=== PATIENT | female | born 1950 | race Caucasian/White ===

== ENCOUNTER 2017-03-31 13:00 | Inpatient (IN) | payer MEDICARE ==
[~2017-03-31] VITALS: Ht 165.1 cm; Wt 113.3 kg
[~2017-03-31 13:00] MED LIST: ALLO300T2 PO; DYAZ37.5 PO; KRIL1CAP9 PO; LEVO.15 PO; METF500 PO; ZOCO40TA PO
[2017-06-29] MEDS ORDERED: COQ-100C5 PO (08:34)
[2017-06-29] MEDS ORDERED: ASPI-110 PO (08:34)
[2017-06-29] MEDS ORDERED: METO25TA3 PO (08:42)
[2017-07-07] MEDS ORDERED: SODIUM CHLORID 0.9% 500 ML IV PRN (06:45)
[2017-07-07] MEDS ORDERED: METOPROLOL TARTRATE 25 MG TAB PO PRN (06:45)
[2017-07-07] MEDS ORDERED: INSULIN HUMAN REGULAR 1,000 UNITS/10 ML VIAL SQ PRN (06:45)
[2017-07-07] MEDS ORDERED: TRANEXAMIC ACID INJ 1,135 MG in SODIUM CHLORIDE 0.9% INJ 100 ML IV SCH (06:45)
[2017-07-07] MEDS ORDERED: POVIDONE IODINE 7.5% SCRUB 118 ML BOTTLE TOPICAL SCH (06:45)
[2017-07-07] MEDS ORDERED: LACTATED RINGER'S 1000 ML IV PRN (06:45)
[2017-07-07] MEDS ORDERED: ceFAZolin 2 GM PREMIX 50 ML IV SCH (06:45)
[2017-07-07] MEDS ORDERED: POVIDONE IODINE 5% (ANTISEPSIS KIT) 4 APPLICATIONS EACH NARE PRN (06:45)
[2017-07-07] MEDS ORDERED: VANCOMYCIN 1000 MG/NS 250 ML (for <70 kg) IV SCH ×2 (06:45)
[2017-07-07] MEDS ORDERED: CHLORHEXIDINE GLUCONATE 2 % 1 PACK (2 CLOTHS) TOPICAL PRN (06:45)
[2017-07-07] MEDS ORDERED: EXPAREL PERI-ARTICULAR INJECTION (TOTAL VOL. 60 ML) P-ARTICULR SCH ×2 (06:45)
[2017-07-07] MEDS ORDERED: ACETAMINOPHEN 1000 MG/100 ML 100 ML IV ONE (07:32)
[2017-07-07] MEDS ORDERED: BUPIVACAINE HCL PF 0.5% 30 ML VIAL ONE (07:33)
[2017-07-07] MEDS ORDERED: DEXAMETHASONE SOD PHOS PF 10 MG/ML VIAL ONE (07:33)
[2017-07-07] MEDS ORDERED: GENTAMICIN SULFATE 80 MG/2 ML VIAL ONE ×2 (07:36→07:50)
[2017-07-07 08:21] LABS: BILIRUBIN, URINE NEG (NEG); BLOOD, URINE MOD (NEG); GLUCOSE,URINE NEG (NEG); KETONE, URINE NEG (NEG); NITRITE,URINE NEG (NEG); SQUAMOUS EPITHELIAL CELL URINE <1 /hpf (0-5); URINE COLOR YELLOW (YELLW/STRAW); URINE LEUKOCYTE ESTERASE NEG (NEG)
[2017-07-07] MEDS ORDERED: PROPOFOL 500 MG/50 ML INJ 50 ML ONE (10:32)
--- NOTE | 2017-07-07 11:36 | PD.OP ---
cc: Jacob Wayne MD Operative Report Date of Surgery: Jul 07, 2017 Preoperative Diagnosis: Osteoarthritis right knee Postoperative Diagnosis: Same Procedure: Right total knee replacement arthroplasty Anesthesia: Spinal with regional and IV sedation Surgeon: Jacob Wayne Natural [employer] Technician(s): PB Holguin Operation and Findings: EBL: 100 cc INDICATION: This patient presents with long-standing arthritis of the knee. Attachment record documents conservative measures. This patient has had over 3 years of conservative care including injections, medications, physical therapy. The patient now presents for surgical treatment. NOTE: Dianne Holguin PA-C was present for the entire surgical procedure as my first aid teacher. In my medical opinion her skill and care was necessary for proper management of this patient. TOURNIQUET TIME: 44 minutes COMPANY: [employer] FEMUR: Size 4, cruciate retaining TIBIA: Size 3, fixed bearing PATELLA: 35 mm POLYETHYLENE INSERT: 11 mm PROCEDURE: This patient was brought the operating room and anesthetized in the supine position. The patient was positioned supine on the table. The tourniquet was placed about the thigh, and the leg was scrubbed with alcohol followed by Hibiclens followed by ChloraPrep and draped sterilely. A timeout was done, and antibiotics were given. After exsanguination the tourniquet was inflated to 250 mmHg. An anterior incision was made and a median parapatellar arthrotomy was performed. The patella was released laterally and subluxed allowing freehand cut of the patella which was then sized. A metal cap was placed over the exposed patellar surface for protection. A barge pilot hole was placed in the distal femur allowing a 5 valgus cut removing 10 mm from the distal femur. Anterior posterior and chamfer cuts were made. The posterior stabilize osteotomy was made. The attention was directed to the tibia. Retractors were positioned. The external alignment guide was used allowing the lateral tibia to be used as referencing guide and cut utilizing an oscillating saw taking care to avoid any injury to the surrounding soft tissues. This was sized properly. Trial reduction showed that the insert fit nicely. The patient had range of motion extension 0 flexion 125. A medial release was not necessary. The bony surfaces prepared. On the back table 2 packets of methylmethacrylate were mixed. The components were cemented. Excess cement was removed. The tourniquet let down and hemostasis was controlled. The final plastic insert was inserted. Range of motion was the same as previously noted. A drain was brought through a separate stab incision. The arthrotomy was repaired with interrupted #1 Vicryl suture, subcutaneous tissue 2-0 Vicryl suture and skin with metallic shannon A sterile dressing was applied. Sponge counts, needle counts and instrument counts were all correct. The patient tolerated procedure well and was taken to recovery in satisfactory condition. FINDINGS: There was severe osteoarthritis especially of the medial compartment. There was also bone on bone in the lateral compartment along the medial edge of the lateral femoral condyle. The final solution appeared to be very good. There was no complication that was appreciated. Jacob Wayne MD Jul 07, 2017 11:36
--- NOTE | 2017-07-07 11:36 | PD.OP ---
cc: Jacob Wayne MD Operative Report Date of Surgery: Jul 07, 2017 Preoperative Diagnosis: Osteoarthritis right knee Postoperative Diagnosis: Same Procedure: Right total knee replacement arthroplasty Anesthesia: Spinal with regional and IV sedation Surgeon: Jacob Wayne Patrol Sergeant [employer] Office(s): PB Holguin Operation and Findings: EBL: 100 cc INDICATION: This patient presents with long-standing arthritis of the knee. Attachment record documents conservative measures. This patient has had over 3 years of conservative care including injections, medications, physical therapy. The patient now presents for surgical treatment. NOTE: Dianne Holguin PA-C was present for the entire surgical procedure as my cutting table operator first. In my medical opinion her skill and care was necessary for proper management of this patient. TOURNIQUET TIME: 44 minutes COMPANY: [employer] FEMUR: Size 4, cruciate retaining TIBIA: Size 3, fixed bearing PATELLA: 35 mm POLYETHYLENE INSERT: 11 mm PROCEDURE: This patient was brought the operating room and anesthetized in the supine position. The patient was positioned supine on the table. The tourniquet was placed about the thigh, and the leg was scrubbed with alcohol followed by Hibiclens followed by ChloraPrep and draped sterilely. A timeout was done, and antibiotics were given. After exsanguination the tourniquet was inflated to 250 mmHg. An anterior incision was made and a median parapatellar arthrotomy was performed. The patella was released laterally and subluxed allowing freehand cut of the patella which was then sized. A metal cap was placed over the exposed patellar surface for protection. A ship pilot hole was placed in the distal femur allowing a 5 valgus cut removing 10 mm from the distal femur. Anterior posterior and chamfer cuts were made. The posterior stabilize osteotomy was made. The attention was directed to the tibia. Retractors were positioned. The external alignment guide was used allowing the lateral tibia to be used as referencing guide and cut utilizing an oscillating saw taking care to avoid any injury to the surrounding soft tissues. This was sized properly. Trial reduction showed that the insert fit nicely. The patient had range of motion extension 0 flexion 125. A medial release was not necessary. The bony surfaces prepared. On the back table 2 packets of methylmethacrylate were mixed. The components were cemented. Excess cement was removed. The tourniquet let down and hemostasis was controlled. The final plastic insert was inserted. Range of motion was the same as previously noted. A drain was brought through a separate stab incision. The arthrotomy was repaired with interrupted #1 Vicryl suture, subcutaneous tissue 2-0 Vicryl suture and skin with metallic shannon A sterile dressing was applied. Sponge counts, needle counts and instrument counts were all correct. The patient tolerated procedure well and was taken to recovery in satisfactory condition. FINDINGS: There was severe osteoarthritis especially of the medial compartment. There was also bone on bone in the lateral compartment along the medial edge of the lateral femoral condyle. The final solution appeared to be very good. There was no complication that was appreciated. Jacob Wayne MD Jul 07, 2017 11:36
[2017-07-07] MEDS ORDERED: OXYC1TAB63 PO (11:38)
[2017-07-07] MEDS ORDERED: XARE10TA PO (11:38)
[2017-07-07] MEDS ORDERED: DEXTROSE 50% IN WATER 50 ML VIAL(D50) IV PUSH PRN (11:45)
[2017-07-07] MEDS ORDERED: NALOXONE HCL 0.4 MG/ML AMP IV PUSH PRN (11:45)
[2017-07-07] MEDS ORDERED: GLUCAGON 1 MG/ML VIAL OTHER PRN (11:45)
[2017-07-07] MEDS ORDERED: oxyCODONE/ACETAMINOPHEN 5 MG/325 MG TAB PO PRN (11:45)
[2017-07-07] MEDS ORDERED: SODIUM CHLORIDE 0.9% FLUSH 5 ML FLUSH IVF PRN (11:45)
[2017-07-07] MEDS ORDERED: MISCELLANEOUS NURSING INFORMATION XX PRN (11:45)
[2017-07-07] MEDS ORDERED: MORPHINE SULFATE 8 MG/ML INJ IM PRN (11:45)
[2017-07-07] MEDS ORDERED: Post-op Orders (for Pharmacy) MISC XX ONE (11:45)
[2017-07-07] MEDS ORDERED: MISCELLANEOUS PHARMACY INFORMATION XX ONE (11:45)
[2017-07-07] MEDS ORDERED: DO NOT ADM ANY ANTICOAGULANT DRUGS PRN (11:54)
[2017-07-07] MEDS: INSULIN NovoLIN REGULAR SUPPLEMENTAL SCALE SQ SCH ×3 (12:13→21:19)
[2017-07-07] MEDS: LACTATED RINGER'S 1000 ML INJ 1,000 ML IV SCH (12:45)
[2017-07-07] MEDS: MORPHINE SULFATE 30 MG/30 ML PCA IV SCH (13:00)
[2017-07-07] MEDS ORDERED: PILL SPLITTER OTHER PRN (13:15)
--- NOTE | 2017-07-07 13:48 | RADRPT ---
EXAM DATE/TIME: 07/07/2017 12:15 [place] COMPARISON: No previous studies available for comparison. INDICATIONS : Post op right knee. MEDICAL HISTORY : Hypothyroidism. Hypertension. Arthritis. Dyspnea. Diabetes. SURGICAL HISTORY : Hysterectomy. Aortic valve replacement. Cardiac cath. Left breast biopsy. ENCOUNTER: Initial ACUITY: 1 day PAIN SCORE: Non-responsive. LOCATION: Right knee FINDINGS: AP and lateral views the right knee were obtained and demonstrate the patient is status post arthropl asty. The femoral and tibial components are intact and in normal alignment. There are postoperative c hanges involving the patella. There is a surgical drain in place. There are multiple overlying surgic al skin shannon. There is anterior soft tissue swelling. CONCLUSION: Expected postoperative changes status post arthroplasty. Jourdan Ortiz MD on July 07, 2017 at 13:46 Board Certified Radiologist. This report was verified electronically.
[2017-07-07] MEDS: PCA - TOTAL MG MORPHINE DELIVERED PER SHIFT SCH ×2 (14:00→22:00)
[2017-07-07] MEDS: oxyCODONE/ACETAMINOPHEN 5 MG/325 MG TAB PO PRN (15:50)
[2017-07-07 16:55] VITALS: BP 135/60; PULSE 62; RESP 17; TEMP 96.4; O2SAT 97
[2017-07-07] MEDS: metFORMIN HCL 500 MG TAB PO SCH (17:57)
[2017-07-07 19:13] VITALS: BP 124/67; PULSE 62; RESP 16; TEMP 96.7; O2SAT 94
[2017-07-07] MEDS ORDERED: TEMAZEPAM 15 MG CAP PO PRN (21:00)
[2017-07-07] MEDS: METOPROLOL TARTRATE 25 MG TAB PO SCH (21:04)
[2017-07-07] MEDS: PRAVASTATIN SOD 80 MG TAB PO SCH (21:04)
[2017-07-07] MEDS: SODIUM CHLORIDE 0.9% FLUSH 5 ML FLUSH IVF SCH (21:04)
[2017-07-07] MEDS: MAGNESIUM HYDROXIDE SUSP 30 ML CUP PO SCH (21:04)
[2017-07-07] MEDS: SENNOSIDES 8.6 MG TAB PO SCH (21:04)
[2017-07-07] MEDS: ALLOPURINOL 300 MG TAB PO SCH (21:04)
[2017-07-08] VITALS (8 sets, daily range): BP systolic 108–131; BP diastolic 55–71; PULSE 69–87; RESP 16–18; TEMP 96.4–97.8; O2SAT 91–95
[2017-07-08] MEDS: LACTATED RINGER'S 1000 ML INJ 1,000 ML IV SCH ×2 (00:01→03:21)
[2017-07-08] MEDS: LEVOTHYROXINE SODIUM 150 MCG TAB PO SCH (05:19)
[2017-07-08] MEDS: PCA - TOTAL MG MORPHINE DELIVERED PER SHIFT SCH (05:20)
[2017-07-08] MEDS: MORPHINE SULFATE 30 MG/30 ML PCA IV SCH (05:47)
[2017-07-08 07:17] LABS: HEMATOCRIT 36.8 % (35.0-46.0); HEMOGLOBIN 12.2 GM/DL (11.6-15.3)
[2017-07-08] MEDS: INSULIN NovoLIN REGULAR SUPPLEMENTAL SCALE SQ SCH ×4 (08:00→21:00)
[2017-07-08] MEDS: METOPROLOL TARTRATE 25 MG TAB PO SCH ×2 (08:16→22:17)
[2017-07-08] MEDS: TRIAMTERENE/HCTZ 37.5 MG/25 MG CAP PO SCH (08:16)
[2017-07-08] MEDS: metFORMIN HCL 500 MG TAB PO SCH ×2 (08:16→18:16)
[2017-07-08] MEDS: SODIUM CHLORIDE 0.9% FLUSH 5 ML FLUSH IVF SCH ×2 (08:16→21:00)
[2017-07-08] MEDS: MAGNESIUM HYDROXIDE SUSP 30 ML CUP PO SCH ×2 (08:16→22:16)
[2017-07-08] MEDS ORDERED: CPMMACHINE (10:27)
--- NOTE | 2017-07-08 10:30 | HHI.FF ---
Face to Face Verification Diagnosis: (1) Osteoarthritis of right knee Physical Therapy Gait training, Safety evaluation, Transfer training, bed to chair Knee: Total knee, Protocol: Right, Full weight bearing Canvas Knee Splint: When in bed & 2 pillows btw thighs Right LE Weight Bearing: WB as tolerated Additional Instructions PT 4 days/wk for 2 weeks. WBAT right LE. TKA protocol. Walker as needed for gait training. CPM bid as tolerated, 0-60 with goal of 100 flexion. Nursing RN Days per Week: 2 x Week(s): 1 Dressing Changes: Do not change dressing Additional Instructions Vitals assessment. Dressing assessment - do not change unless saturated or erythema. Ok to shower pod#5 if kept SEALED AND DRY. I have seen patient Mirna Obrien on 07/08/17. My clinical findings support the need for the requested home health care services because: Limited ability to care for self High risk of falls I certify that my clinical findings support that this patient is homebound because: Post-op weakness Unsteady gait/balance Leora Castro Jul 08, 2017 10:30
[2017-07-08] MEDS: RIVAROXABAN 10 MG TAB PO SCH (11:05)
[2017-07-08] MEDS: oxyCODONE/ACETAMINOPHEN 5 MG/325 MG TAB PO PRN ×3 (11:06→22:17)
[2017-07-08] MEDS ORDERED: ONDANSETRON HCL 4 MG/2 ML VIAL IV PUSH PRN (11:30)
--- NOTE | 2017-07-08 13:17 | HHI.DCPOC ---
Discharge Care Plan Diagnosis: (1) Osteoarthritis of right knee Your Health Problems Are: Incision/Drains Swelling Goals to Promote Your Health * To prevent worsening of your condition and complications * To maintain your health at the optimal level Directions to Meet Your Goals Take your medications as prescribed Follow your dietary instruction Follow activity as directed Keep your appointments as scheduled Take your immunizations and boosters as scheduled If your symptoms worsen call your PCP, if no PCP go to Urgent Care Center or Emergency Room Smoking is Dangerous to Your Health. Avoid second hand smoke Call the 24-hour hour crisis hotline for domestic abuse at Leora Castro Jul 08, 2017 13:17
--- NOTE | 2017-07-08 13:17 | HHI.DCPOC ---
Discharge Care Plan Diagnosis: (1) Osteoarthritis of right knee Your Health Problems Are: Incision/Drains Swelling Goals to Promote Your Health * To prevent worsening of your condition and complications * To maintain your health at the optimal level Directions to Meet Your Goals Take your medications as prescribed Follow your dietary instruction Follow activity as directed Keep your appointments as scheduled Take your immunizations and boosters as scheduled If your symptoms worsen call your PCP, if no PCP go to Urgent Care Center or Emergency Room Smoking is Dangerous to Your Health. Avoid second hand smoke Call the 24-hour hour crisis hotline for domestic abuse at Leora Castro Jul 08, 2017 13:17
--- NOTE | 2017-07-08 13:17 | HHI.DCPOC ---
Discharge Care Plan Diagnosis: (1) Osteoarthritis of right knee Your Health Problems Are: Incision/Drains Swelling Goals to Promote Your Health * To prevent worsening of your condition and complications * To maintain your health at the optimal level Directions to Meet Your Goals Take your medications as prescribed Follow your dietary instruction Follow activity as directed Keep your appointments as scheduled Take your immunizations and boosters as scheduled If your symptoms worsen call your PCP, if no PCP go to Urgent Care Center or Emergency Room Smoking is Dangerous to Your Health. Avoid second hand smoke Call the 24-hour hour crisis hotline for domestic abuse at Leora Castro Jul 08, 2017 13:17
--- NOTE | 2017-07-08 13:18 | HHI.DS ---
Discharge Summary Admission Date Jul 07, 2017 at 06:23 Discharge Date: Jul 09, 2017 Admitting Diagnosis see below Diagnosis: (1) Osteoarthritis of right knee Diagnosis: Principal ICD Codes: M17.11 - Unilateral primary osteoarthritis, right knee Procedures Right total knee arthoplasty Brief History This is a 67 year old female patient with a 3 year history of right knee pain. She initially sought out treatment with an orthopaedic physician who prescribed voltaren gel and tramadol. She was given multiple cortisone injections with only temporary relief. She was reimaged years after the onset of her symptoms and her condition had advanced. It was recommended she pursue right total knee arthroplasty. She agreed and presents now for the above. CBC/BMP: 07/08/17 0615 Significant Findings Laboratory Tests Test 07/07/17 07:51 07/08/17 06:15 Urine Occult Blood MOD (NEG) Hospital Course Surgical treatment was performed on the day of admission without complication. She recovered well in PACU and was transferred to the orthopaedic floor. Pain was controlled with IV and oral medications. DVT prophylaxis was initiated pod# 1 using xarelto. She was compliant with physical therapy and all total knee restrictions including use of her CPM. After 2 days she was found to be stable and discharged home with home health care. She was instructed to continue physical therapy and use of her cpm, pursue a high fiber diet and to take her pain medication and anticoagulant as directed. She was given prescriptions of Percocet 5mg and xarelto 10mg. Pt Condition on Discharge: Stable Discharge Disposition: Disch w/ Home Health Serv Discharge Instructions Diet Instructions: Diabetic Diet Activities You Can Perform: Weight Bearing as Sabina Activities to Avoid: Strenuous Activity New Medications: CPM-Continuous Passive Motion Machine (CPM-Continuous Passive Motion Machine) 1 Ea Device EA .ROUTE DIRECTED, #1 0 Refills Oxycodone-Acetaminophen (Oxycodone-Acetaminophen) 5-325 mg Tab 1 TAB PO Q4H PRN for PAIN, #50 TAB Rivaroxaban (Xarelto) 10 Mg Tab 10 MG PO Q24H for Prevent Blood Clot, #15 TAB Continued Medications: Allopurinol (Allopurinol) 300 Mg Tab 300 MG PO HS for Gout, #30 TAB 0 Refills Coenzyme Q10 (Ubidecarenone) (Coq-10 Tr) 100 Mg Cap 1 CAP PO DAILY Krill Oil (Megared [place]-3 Krill Oil) 500 Mg Cap 100 MG PO DAILY Levothyroxine (Synthroid) 150 Mcg Tab 150 MCG PO DAILY for Thyroid, #30 TAB 0 Refills Metformin (Glucophage) 500 Mg Tab 500 MG PO BIDPC for Blood Sugar Management, #60 TAB 0 Refills With meals Metoprolol Tartrate (Metoprolol Tartrate) 25 Mg Tab 12.5 MG PO BID, #30 TAB 0 Refills Simvastatin (Zocor) 40 Mg Tab 40 MG PO HS for Cholesterol Management, #30 TAB 0 Refills Triamterene-Hydrochlorothiazide (Dyazide) 37.5-25 Mg Cap 1 CAP PO DAILY, #30 CAP 0 Refills Discontinued Medications: Aspirin DR (Aspirin 81) 81 Mg Tabdr 81 MG PO DAILY, TAB 0 Refills Leora Castro Jul 08, 2017 13:18
--- NOTE | 2017-07-08 13:22 | PD.ORT.PN ---
Subjective Subjective Remarks Doing well. Moderate right knee pain. No new radiating leg pain. Was considering discharge today but wants to wait until tomorrow. Questions about surgery. She denies any new CP or SOB. Objective Vitals Vital Signs Date Time Temp Pulse Resp B/P (MAP) Pulse Ox O2 Delivery O2 Flow Rate FiO2 07/08/17 09:41 93 21 07/08/17 08:00 97.4 77 18 131/71 (91) 94 07/08/17 05:47 18 07/08/17 05:20 18 07/08/17 03:18 96.4 77 17 108/57 (74) 94 07/08/17 00:30 96.7 81 17 127/65 (85) 92 07/07/17 22:00 18 07/07/17 19:13 96.7 62 16 124/67 (86) 94 07/07/17 16:55 96.4 62 17 135/60 (85) 97 07/07/17 16:37 97.9 64 21 125/85 (98) 96 Nasal Cannula 2 07/07/17 16:00 64 18 117/58 (77) 92 Nasal Cannula 2 07/07/17 15:00 64 19 123/71 (88) 94 Room Air 07/07/17 14:00 62 24 121/76 (91) 96 Room Air I/O 07/07/17 07/07/17 07/07/17 07/08/17 07/08/17 07/08/17 07:00 15:00 23:00 07:00 15:00 23:00 Intake Total 2000 ml 750 ml 480 ml Output Total 500 ml 1100 ml 45 ml Balance 1500 ml -350 ml 435 ml Intake Oral 500 ml 480 ml IV Total 250 ml Other 2000 ml Output Urine Total 400 ml 1000 ml Drainage Total 100 ml 45 ml Estimated Blood Loss 100 ml # Bowel Movements 0 0 Result Diagram: 07/08/17 0615 Procedures Right total knee arthoplasty Objective Remarks Sitting up in chair at bedside NAD VSS RLE Dressing c/d/i, drain site clear, mild swelling, no erythema +motor at, +sens, +nvi Neg homans sign, Thigh supple Assessment & Plan Ortho Post Op Day #: 1 Problem List: (1) Osteoarthritis of right knee ICD Codes: M17.11 - Unilateral primary osteoarthritis, right knee Qualifiers: Qualified Codes: M17.11 - Unilateral primary osteoarthritis, right knee Assessment and Plan pod#1 s/p R TKA Ortho stable. BUNCHER HAND dc'd. PO pain meds as needed. Xarelto 10mg qd. PT - WBAT RLE. TKA protocol. CPM bid. Hold dressing changes unless saturated. D/C planning, likely [facility] tomorrow. DME written. Leora Castro Jul 08, 2017 13:21
--- NOTE | 2017-07-08 13:22 | PD.ORT.PN ---
Subjective Subjective Remarks Doing well. Moderate right knee pain. No new radiating leg pain. Was considering discharge today but wants to wait until tomorrow. Questions about surgery. She denies any new CP or SOB. Objective Vitals Vital Signs Date Time Temp Pulse Resp B/P (MAP) Pulse Ox O2 Delivery O2 Flow Rate FiO2 07/08/17 09:41 93 21 07/08/17 08:00 97.4 77 18 131/71 (91) 94 07/08/17 05:47 18 07/08/17 05:20 18 07/08/17 03:18 96.4 77 17 108/57 (74) 94 07/08/17 00:30 96.7 81 17 127/65 (85) 92 07/07/17 22:00 18 07/07/17 19:13 96.7 62 16 124/67 (86) 94 07/07/17 16:55 96.4 62 17 135/60 (85) 97 07/07/17 16:37 97.9 64 21 125/85 (98) 96 Nasal Cannula 2 07/07/17 16:00 64 18 117/58 (77) 92 Nasal Cannula 2 07/07/17 15:00 64 19 123/71 (88) 94 Room Air 07/07/17 14:00 62 24 121/76 (91) 96 Room Air I/O 07/07/17 07/07/17 07/07/17 07/08/17 07/08/17 07/08/17 07:00 15:00 23:00 07:00 15:00 23:00 Intake Total 2000 ml 750 ml 480 ml Output Total 500 ml 1100 ml 45 ml Balance 1500 ml -350 ml 435 ml Intake Oral 500 ml 480 ml IV Total 250 ml Other 2000 ml Output Urine Total 400 ml 1000 ml Drainage Total 100 ml 45 ml Estimated Blood Loss 100 ml # Bowel Movements 0 0 Result Diagram: 07/08/17 0615 Procedures Right total knee arthoplasty Objective Remarks Sitting up in chair at bedside NAD VSS RLE Dressing c/d/i, drain site clear, mild swelling, no erythema +motor at, +sens, +nvi Neg homans sign, Thigh supple Assessment & Plan Ortho Post Op Day #: 1 Problem List: (1) Osteoarthritis of right knee ICD Codes: M17.11 - Unilateral primary osteoarthritis, right knee Qualifiers: Qualified Codes: M17.11 - Unilateral primary osteoarthritis, right knee Assessment and Plan pod#1 s/p R TKA Ortho stable. 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 PO pain meds as needed. Xarelto 10mg qd. PT - WBAT RLE. TKA protocol. CPM bid. Hold dressing changes unless saturated. D/C planning, likely [facility] tomorrow. DME written. Leora Castro Jul 08, 2017 13:21
--- NOTE | 2017-07-08 13:22 | PD.ORT.PN ---
Subjective Subjective Remarks Doing well. Moderate right knee pain. No new radiating leg pain. Was considering discharge today but wants to wait until tomorrow. Questions about surgery. She denies any new CP or SOB. Objective Vitals Vital Signs Date Time Temp Pulse Resp B/P (MAP) Pulse Ox O2 Delivery O2 Flow Rate FiO2 07/08/17 09:41 93 21 07/08/17 08:00 97.4 77 18 131/71 (91) 94 07/08/17 05:47 18 07/08/17 05:20 18 07/08/17 03:18 96.4 77 17 108/57 (74) 94 07/08/17 00:30 96.7 81 17 127/65 (85) 92 07/07/17 22:00 18 07/07/17 19:13 96.7 62 16 124/67 (86) 94 07/07/17 16:55 96.4 62 17 135/60 (85) 97 07/07/17 16:37 97.9 64 21 125/85 (98) 96 Nasal Cannula 2 07/07/17 16:00 64 18 117/58 (77) 92 Nasal Cannula 2 07/07/17 15:00 64 19 123/71 (88) 94 Room Air 07/07/17 14:00 62 24 121/76 (91) 96 Room Air I/O 07/07/17 07/07/17 07/07/17 07/08/17 07/08/17 07/08/17 07:00 15:00 23:00 07:00 15:00 23:00 Intake Total 2000 ml 750 ml 480 ml Output Total 500 ml 1100 ml 45 ml Balance 1500 ml -350 ml 435 ml Intake Oral 500 ml 480 ml IV Total 250 ml Other 2000 ml Output Urine Total 400 ml 1000 ml Drainage Total 100 ml 45 ml Estimated Blood Loss 100 ml # Bowel Movements 0 0 Result Diagram: 07/08/17 0615 Procedures Right total knee arthoplasty Objective Remarks Sitting up in chair at bedside NAD VSS RLE Dressing c/d/i, drain site clear, mild swelling, no erythema +motor at, +sens, +nvi Neg homans sign, Thigh supple Assessment & Plan Ortho Post Op Day #: 1 Problem List: (1) Osteoarthritis of right knee ICD Codes: M17.11 - Unilateral primary osteoarthritis, right knee Qualifiers: Qualified Codes: M17.11 - Unilateral primary osteoarthritis, right knee Assessment and Plan pod#1 s/p R TKA Ortho stable. 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 PO pain meds as needed. Xarelto 10mg qd. PT - WBAT RLE. TKA protocol. CPM bid. Hold dressing changes unless saturated. D/C planning, likely [facility] tomorrow. DME written. Leora Castro Jul 08, 2017 13:21
[2017-07-08] MEDS: ALLOPURINOL 300 MG TAB PO SCH (22:17)
[2017-07-08] MEDS: PRAVASTATIN SOD 80 MG TAB PO SCH (22:17)
[2017-07-08] MEDS: SENNOSIDES 8.6 MG TAB PO SCH (22:17)
[2017-07-09 00:47] VITALS: BP 122/65; PULSE 68; RESP 20; TEMP 97.7; O2SAT 96
[2017-07-09] MEDS: LACTATED RINGER'S 1000 ML INJ 1,000 ML IV SCH (01:01)
[2017-07-09] MEDS: oxyCODONE/ACETAMINOPHEN 5 MG/325 MG TAB PO PRN ×2 (02:19→09:09)
[2017-07-09] MEDS: LEVOTHYROXINE SODIUM 150 MCG TAB PO SCH (05:30)
[2017-07-09 08:00] VITALS: BP 122/62; PULSE 65; RESP 16; TEMP 97.5; O2SAT 98
[2017-07-09] MEDS: INSULIN NovoLIN REGULAR SUPPLEMENTAL SCALE SQ SCH ×2 (08:00→11:56)
--- NOTE | 2017-07-09 08:39 | PD.ORT.PN ---
Subjective Subjective Remarks She continues to do well. No new complaints. No interval changes. She feels her pain is well controlled. She denies any new CP or SOB. Ready for d/c home w [facility] today. Objective Vitals Vital Signs Date Time Temp Pulse Resp B/P (MAP) Pulse Ox O2 Delivery O2 Flow Rate FiO2 07/09/17 00:47 97.7 68 20 122/65 (84) 96 07/08/17 21:47 95 07/08/17 19:05 97.4 87 16 115/55 (75) 91 07/08/17 15:45 97.8 71 16 121/59 (79) 95 07/08/17 12:00 97.1 69 17 118/65 (82) 94 07/08/17 09:41 93 21 I/O 07/08/17 07/08/17 07/08/17 07/09/17 07/09/17 07/09/17 07:00 15:00 23:00 07:00 15:00 23:00 Intake Total 480 ml 720 ml 420 ml Output Total 695 ml 105 ml 40 ml Balance -215 ml 720 ml -105 ml 380 ml Intake Oral 480 ml 720 ml 420 ml Output Urine Total 650 ml Drainage Total 45 ml 105 ml 40 ml # Voids 1 3 # Bowel Movements 0 0 1 Result Diagram: 07/08/17 0615 Procedures Right total knee arthoplasty Objective Remarks Sitting up in chair NAD VSS RLE Dressing c/d/i, drain site clear, mild swelling, no erythema +motor at, +sens, +nvi Neg homans sign, Thigh supple Assessment & Plan Ortho Post Op Day #: 2 Problem List: (1) Osteoarthritis of right knee ICD Codes: M17.11 - Unilateral primary osteoarthritis, right knee Qualifiers: Qualified Codes: M17.11 - Unilateral primary osteoarthritis, right knee Assessment and Plan pod#2 s/p R TKA Ortho stable. D/C knee drain. Ok to redress drain site only. Hold incision dressing changes. PO pain meds as needed. Xarelto 10mg qd. PT - WBAT RLE. TKA protocol. CPM bid. D/C home w [facility] today after PT. F/U as scheduled in 2 weeks. DME written. Leora Castro Jul 09, 2017 08:39
[2017-07-09] MEDS: SODIUM CHLORIDE 0.9% FLUSH 5 ML FLUSH IVF SCH (09:00)
[2017-07-09] MEDS: MAGNESIUM HYDROXIDE SUSP 30 ML CUP PO SCH (09:00)
[2017-07-09] MEDS: metFORMIN HCL 500 MG TAB PO SCH (09:07)
[2017-07-09] MEDS: TRIAMTERENE/HCTZ 37.5 MG/25 MG CAP PO SCH (09:07)
[2017-07-09] MEDS: METOPROLOL TARTRATE 25 MG TAB PO SCH (09:07)
[2017-07-09] MEDS: RIVAROXABAN 10 MG TAB PO SCH (11:46)
== END 2017-07-09 11:55 | disposition home health service (06) | DRG 470 ==
LOC: HSDI 07-07 06:23 → N06A 07-07 16:55
PROVIDERS: ADMIT Orthopaedic Surgery Orthopaedic Surgery of the Spine; ATTEND Orthopaedic Surgery Orthopaedic Surgery of the Spine
PROC: 3E0T3BZ Introduction of Anesthetic Agent into Peripheral Nerves and Plexi, Percutaneous Approach (ICD-10-PCS; 2017-07-07)
PROC: 0SRC0J9 Replacement of Right Knee Joint with Synthetic Substitute, Cemented, Open Approach (ICD-10-PCS; principal; 2017-07-07 09:00)
DX: M17.11 Unilateral primary osteoarthritis, right knee (principal); Z68.41 Body mass index [BMI] 40.0-44.9, adult; I10 Essential (primary) hypertension; E11.9 Type 2 diabetes mellitus without complications; E66.9 Obesity, unspecified; E03.9 Hypothyroidism, unspecified; E78.00 Pure hypercholesterolemia, unspecified; Z79.84 Long term (current) use of oral hypoglycemic drugs; Z95.2 Presence of prosthetic heart valve; Z87.891 Personal history of nicotine dependence
CPT/HCPCS: 73560; 81001; 82948; 85014; 85018; 86850; 86900; 86901; 86920; 94150; C9290; J0131; J0690; J1100; J1580; J2270; J3370; J7050; J7120; L1830

== ENCOUNTER → 2017-06-29 | Outpatient (CLI) | payer MEDICARE ==
[~2017-06-29] MED LIST changes: +ALBU.5I NEB; +ASPI1TAB57 PO; +ASPI1TAB69 PO; +CEFT500T3 PO; +COQ-100C2 PO; +COQ-100C5 PO; +CPMMACHINE; +IPRA0.02 NEB; +MEDR4PAK PO; +METO25TA3 PO; +NEBUKIT5; +OXYC1TAB63 PO; +PERC5TAB12 PO; +SYMB160A INH; +VENTAER INH; +XARE10TA PO
[2017-06-29 09:32] LABS: AUTOMATED NEUTROPHIL # 7.3 TH/MM3 (1.8-7.7); BASOPHIL # 0.1 TH/MM3 (0-0.2); EOSINOPHIL # 0.2 TH/MM3 (0-0.4); EOSINOPHIL % 1.9 % (0.0-4.0); HEMATOCRIT 40.2 % (35.0-46.0); HEMOGLOBIN 13.3 GM/DL (11.6-15.3); LYMPH % 14.7 % (9.0-44.0); LYMPHOCYTE # 1.5 TH/MM3 (1.0-4.8); MEAN CELL VOLUME 85.8 FL (80.0-100.0); MEAN CORPUSCULAR HEMOGLOBIN 28.3 PG (27.0-34.0); MEAN PLATELET VOLUME 7.7 FL (7.0-11.0); MONO % 8.5 % (0.0-8.0); MONOCYTE # 0.8 TH/MM3 (0-0.9); NEUT % 73.9 % (16.0-70.0); PLATELET COUNT 232 TH/MM3 (150-450); RED BLOOD COUNT 4.68 MIL/MM3 (4.00-5.30); RED CELL DISTRIBUTION WIDTH 14.5 % (11.6-17.2); WHITE BLOOD COUNT 9.9 TH/MM3 (4.0-11.0)
[2017-06-29 09:39] LABS: PROTHROMBIN TIME - PATIENT 10.6 SEC (9.8-11.6)
[2017-06-29 09:57] LABS: BACTERIA, URINE MOD /hpf; BILIRUBIN, URINE NEG (NEG); BLOOD, URINE MOD (NEG); GLUCOSE,URINE NEG (NEG); HYALINE CAST, URINE 1 /lpf (RARE); KETONE, URINE NEG (NEG); MUCUS URINE FEW /lpf (OCC); NITRITE,URINE NEG (NEG); PH, URINE 5.5 (5.0-8.5); SQUAMOUS EPITHELIAL CELL URINE <1 /hpf (0-5); URINE COLOR YELLOW (YELLW/STRAW); URINE LEUKOCYTE ESTERASE MOD (NEG)
[2017-06-29 10:00] LABS: WESTERGREN SEDIMENTATION RATE 52 mm/hr (0-30)
[2017-06-29 10:01] LABS: CREATININE 1.22 MG/DL (0.50-1.00)
--- NOTE | 2017-06-29 18:07 | EKG ---
Date Performed: 06/29/2017 Time Performed: 09:05:18 PTAGE: 67 years EKG: Sinus rhythm POSSIBLE LEFT ATRIAL ENLARGEMENT INFERIOR MYOCARDIAL INFARCTION, OF INDETERMINATE AGE ABNORMAL ECG PREVIOUS TRACING : 08/09/2016 16.28 DOCTOR: Thony Silva Interpretating Date/Time 06/29/2017 18:05:11
== END ==
LOC: CPRE 08:14
PROVIDERS: ATTEND Orthopaedic Surgery Orthopaedic Surgery of the Spine
DX: Z01.810 Encounter for preprocedural cardiovascular examination (principal); Z79.01 Long term (current) use of anticoagulants; Z01.812 Encounter for preprocedural laboratory examination; M17.11 Unilateral primary osteoarthritis, right knee; R94.31 Abnormal electrocardiogram [ECG] [EKG]; B96.20 Unspecified Escherichia coli [E. coli] as the cause of diseases classified elsewhere; R82.90 Unspecified abnormal findings in urine
CPT/HCPCS: 36415; 80048; 81001; 85025; 85610; 85652; 85730; 87077; 87086; 87186; 93005

== ENCOUNTER → 2017-07-06 | Outpatient (CLI) | payer MEDICARE ==
[~2017-07-06] MED LIST changes: -ALBU.5I NEB; +ASPI-110 PO; -ASPI1TAB57 PO; -ASPI1TAB69 PO; -CEFT500T3 PO; -COQ-100C2 PO; -IPRA0.02 NEB; -MEDR4PAK PO; -NEBUKIT5; -PERC5TAB12 PO; -SYMB160A INH; -VENTAER INH
[2017-07-06 08:45] LABS: BACTERIA, URINE OCC /hpf; BLOOD, URINE TRACE (NEG); COMMENT (UR) CULT NOT INDICATED; CULTURE IF INDICATED CULT NOT INDICATED; GLUCOSE,URINE NEG (NEG); HYALINE CAST, URINE 1 /lpf (RARE); KETONE, URINE NEG (NEG); MUCUS URINE FEW /lpf (OCC); NITRITE,URINE NEG (NEG); SQUAMOUS EPITHELIAL CELL URINE 2 /hpf (0-5); URINE COLOR YELLOW (YELLW/STRAW)
== END ==
LOC: CLAB 07:59
PROVIDERS: ATTEND Orthopaedic Surgery Orthopaedic Surgery of the Spine
DX: Z01.812 Encounter for preprocedural laboratory examination (principal); N39.0 Urinary tract infection, site not specified
CPT/HCPCS: 81001

== ENCOUNTER 2018-02-04 11:15 | Inpatient (IN) | payer MEDICARE ==
[~2018-02-04] VITALS: Ht 165.1 cm; Wt 110.0 kg
[~2018-02-04 11:15] MED LIST changes: -ASPI-110 PO
[2018-02-04 11:23] VITALS: BP 120/58; PULSE 63; RESP 18; TEMP 98.1; O2SAT 95
[2018-02-04 12:40] VITALS: BP 137/73; PULSE 76; RESP 16; O2SAT 97
[2018-02-04] MEDS ORDERED: PROCHLORPERAZINE INJ 10 MG/2 ML VIAL IV PUSH ONE (13:00)
[2018-02-04] MEDS ORDERED: KRIL500C2 PO (13:09)
[2018-02-04] MEDS ORDERED: RIFA300C PO (13:09)
[2018-02-04 13:11] VITALS: RESP 16; O2SAT 98
[2018-02-04 13:49] LABS: AUTOMATED NEUTROPHIL # 10.6 TH/MM3 (1.8-7.7); BASOPHIL # 0.1 TH/MM3 (0-0.2); BASOPHIL % 0.7 % (0.0-2.0); EOSINOPHIL # 0.2 TH/MM3 (0-0.4); EOSINOPHIL % 1.6 % (0.0-4.0); HEMATOCRIT 34.3 % (35.0-46.0); HEMOGLOBIN 11.3 GM/DL (11.6-15.3); LYMPH % 9.2 % (9.0-44.0); LYMPHOCYTE # 1.2 TH/MM3 (1.0-4.8); MEAN CELL VOLUME 84.1 FL (80.0-100.0); MEAN CORPUSCULAR HEMOGLOBIN 27.8 PG (27.0-34.0); MEAN CORPUSCULAR HGB CONC 33.1 % (32.0-36.0); MEAN PLATELET VOLUME 6.8 FL (7.0-11.0); MONO % 7.4 % (0.0-8.0); NEUT % 81.1 % (16.0-70.0); PLATELET COUNT 314 TH/MM3 (150-450); RED BLOOD COUNT 4.08 MIL/MM3 (4.00-5.30); RED CELL DISTRIBUTION WIDTH 14.9 % (11.6-17.2); WHITE BLOOD COUNT 13.1 TH/MM3 (4.0-11.0)
[2018-02-04 14:03] LABS: CALCIUM 9.4 MG/DL (8.5-10.1); CREATININE 0.96 MG/DL (0.50-1.00)
--- NOTE | 2018-02-04 14:14 | PD ---
HPI Chief Complaint: GI Complaint Time Seen by Provider: 12:35 Travel History International Travel<30 days: No Contact w/Intl Traveler<30days: No Traveled to known affect area: No History of Present Illness HPI This is a 67-year-old female with history of aortic valve replacement, diabetes mellitus, hypertension, recent right knee replacement with complicated infection , who presents today with complaint and nausea vomiting. Patient was discharged from the hospital in [place] yesterday. On her discharge paperwork , they recommended that she return to the ER if she developed nausea vomiting fevers chills or any other concerning lesion. The patient is currently taking rifampin orally. She states that yesterday when she took it, she had an episode of emesis. She states that when she took it yesterday she took it with food and figured she take it on an empty stomach this morning which was followed by vomiting. There is no reported fevers, chills. There is no reported dysuria urgency or frequency, she reports that her knee feels good. There are no other complaints at time of my examination. She is scheduled to have home IV antibiotics. She scheduled to have 12 g of nafcillin via continuous IV pump. PFSH Past Medical History Cancer: No Cardiovascular Problems: Yes (AORTIC PIG VALVE REPLACEMENT) Chest Pain: No Diabetes: Yes (TYPE II) Patient Takes Glucophage: Yes Diminished Hearing: No Endocrine: Yes Gastrointestinal Disorders: No Glaucoma: No Genitourinary: Yes (FREQUENT UTI) Hepatitis: No Hiatal Hernia: No Hypertension: Yes Immune Disorder: No Musculoskeletal: Yes (OA) Neurologic: No Psychiatric: No Reproductive: No Integumentary: No Immunizations Current: No Thyroid Disease: Yes (HYPOTHYROID) Tetanus Vaccination: < 5 Years Influenza Vaccination: Yes : 2 Para: 1 Past Surgical History Abdominal Surgery: No AICD: No Cardiac Surgery: Yes (CARDIAC CATH;AORTIC VALVE REPLACEMENT) Ear Surgery: No Endocrine Surgery: No Eye Surgery: No Genitourinary Surgery: No Gynecologic Surgery: Yes (HYSTERECTOMY) Hysterectomy: Yes Joint Replacement: No Oral Surgery: No Pacemaker: No Thoracic Surgery: No Other Surgery: Yes (L BREAST BIOPSY) Social History Alcohol Use: No Tobacco Use: No Substance Use: No Allergies-Medications (Allergen,Severity, Reaction): Coded Allergies: No Known Allergies (Verified Allergy, Unknown, 02/04/18) Reported Meds & Prescriptions Reported Meds & Active Scripts Active Reported Rifadin (Rifampin) 300 Mg Cap 300 Mg PO BID Krill Oil 500 Mg Capsule 500 Mg PO DAILY Metoprolol Tartrate 25 Mg Tab 12.5 Mg PO BID Coq-10 Tr (Coenzyme Q10 (Ubidecarenone)) 100 Mg Cap 100 Mg PO DAILY Zocor (Simvastatin) 40 Mg Tab 40 Mg PO HS Glucophage (Metformin HCl) 500 Mg Tab 500 Mg PO BIDPC With meals Dyazide (Triamterene-Hydrochlorothiazide) 37.5-25 Mg Cap 1 Cap PO DAILY Allopurinol 300 Mg Tab 300 Mg PO HS Synthroid (Levothyroxine Sodium) 150 Mcg Tab 150 Mcg PO DAILY Review of Systems Except as stated in HPI: all other systems reviewed are Neg General / Constitutional: No: Fever, Chills Cardiovascular: No: Chest Pain or Discomfort, Palpitations Respiratory: No: Cough, Shortness of Breath Gastrointestinal: Positive: Nausea, Vomiting, No: Diarrhea, Abdominal Pain Genitourinary: No: Frequency, Dysuria Musculoskeletal: No: Edema (No increased knee pain no increased edema), Pain Neurologic: No: Weakness, Dizziness, Headache Physical Exam Narrative GENERAL: Well-developed well-nourished female in no acute respiratory distress. SKIN: Focused skin assessment warm/dry. HEAD: Atraumatic. Normocephalic. EYES: Pupils equal and round. No scleral icterus. No injection or drainage. ENT: No nasal bleeding or discharge. Mucous membranes pink and moist. NECK: Trachea midline. Supple. CARDIOVASCULAR: Regular rate and rhythm. Occasional PVC noted. Patient reports having history of PVCs since she had her aortic valve replaced. RESPIRATORY: No accessory muscle use. Clear to auscultation. Breath sounds equal bilaterally. GASTROINTESTINAL: Abdomen soft, non-tender, nondistended. Hepatic and splenic margins not palpable. MUSCULOSKELETAL: Right knee surgical incision appears clean dry and intact. There is no drainage or redness. NEUROLOGICAL: Awake and alert. No obvious cranial nerve deficits. Motor grossly within normal limits. Normal speech. PSYCHIATRIC: Appropriate mood and affect; insight and judgment normal. Data Data Last Documented VS Vital Signs Date Time Temp Pulse Resp B/P (MAP) Pulse Ox O2 Delivery O2 Flow Rate FiO2 02/04/18 13:11 16 98 Room Air 02/04/18 11:23 98.1 63 120/58 (78) Orders Orders Complete Blood Count With Diff (5/31/18 12:56) Basic Metabolic Panel (Bmp) (02/04/18 12:56) Blood Culture (02/04/18 12:56) Iv Access Insert/Monitor (02/04/18 12:56) Ecg Monitoring (02/04/18 12:56) Oximetry (02/04/18 12:56) Prochlorperazine Inj (Compazine Inj) (02/04/18 13:00) Admit Order (Ed Use Only) (02/04/18 15:14) Labs Laboratory Tests Test 02/04/18 13:11 White Blood Count 13.1 TH/MM3 Red Blood Count 4.08 MIL/MM3 Hemoglobin 11.3 GM/DL Hematocrit 34.3 % Mean Corpuscular Volume 84.1 FL Mean Corpuscular Hemoglobin 27.8 PG Mean Corpuscular Hemoglobin Concent 33.1 % Red Cell Distribution Width 14.9 % Platelet Count 314 TH/MM3 Mean Platelet Volume 6.8 FL Neutrophils (%) (Auto) 81.1 % Lymphocytes (%) (Auto) 9.2 % Monocytes (%) (Auto) 7.4 % Eosinophils (%) (Auto) 1.6 % Basophils (%) (Auto) 0.7 % Neutrophils # (Auto) 10.6 TH/MM3 Lymphocytes # (Auto) 1.2 TH/MM3 Monocytes # (Auto) 1.0 TH/MM3 Eosinophils # (Auto) 0.2 TH/MM3 Basophils # (Auto) 0.1 TH/MM3 CBC Comment DIFF FINAL Differential Comment Blood Urea Nitrogen 18 MG/DL Creatinine 0.96 MG/DL Random Glucose 116 MG/DL Calcium Level 9.4 MG/DL Sodium Level 137 MEQ/L Potassium Level 3.6 MEQ/L Chloride Level 100 MEQ/L Carbon Dioxide Level 26.0 MEQ/L Anion Gap 11 MEQ/L Estimat Glomerular Filtration Rate 58 ML/MIN MDM Medical Decision Making Medical Screen Exam Complete: Yes Emergency Medical Condition: Yes Differential Diagnosis Sepsis versus drug-related vomiting versus gastroenteritis Narrative Course This is a 67-year-old female who had recent debridement of an infected total knee joint, presents here with nausea vomiting. Patient was discharged from the hospital in [place] yesterday. They were setting up nafcillin for home health infusion. According to the patient they were scheduled to have it start today but have not had the home health nurse at the house as of yet. The patient denies any fevers, chills. White count is 13.2 with which is up from 8.52 days ago. Given her discharge yesterday and symptoms, we will admit her to the hospital and start her nafcillin infusion. They will be an ID consult placed. Case was discussed with both the patient's primary care physician and Dr. Jacob Perez, orthopedic surgeon who performed her initial knee surgery 7 months ago. He will see her in consultation. Case was discussed with Dr. Sampson, [facility] hospitalist, who will admit the patient to his service. Diagnosis Primary Impression: Nausea & vomiting Additional Impressions: Infected knee joint status post surgery within 7 days. Diabetes mellitus History of aortic valve replacement Hyperlipemia Admitting Information Admitting Physician Requests: Admit Dean Magana MD February 04, 2018 14:14
--- NOTE | 2018-02-04 15:35 | HHI.HP ---
[facility] Service [facility] Primary Care Physician Juan Levine MD Admission Diagnosis Nausea vomitin, left total knee infection, leukocytosis, diabetes me Diagnoses: Travel History International Travel<30 Days: No Contact w/Intl Traveler <30 Da: No Traveled to Known Affected Are: No History of Present Illness Written by Faye Meadows, acting as scribe for Dr. Barbosa on 02/04/18 at 15:24. 67-year-old female with past medical history significant for HTN, DM, aortic valve replacement, hypothyroidism, and gout who underwent right knee replacement in June 2017 by . She presents to the emergency department today with complaints of nausea and vomiting. She was discharged from [facility] yesterday and returned to [place]. She was instructed that if she were to develop symptoms of systemic infection to return to the emergency department. She reports that she was discharged from the hospital with IV antibiotics which she has not yet started along with p.o. antibiotics, Rifampin. Nausea began yesterday prior to her leaving hospital and she has had 3 episodes of emesis since being discharged, has not tried to have anything else to eat after this. Patient was treated in the [place] for right knee swelling. She reports that she had aspiration of the right knee and removal of 90 cc of cloudy fluid which patient was told looked infectious on 01/25. She was prescribed at that time oral Levaquin, however cultures resulted back positive for staph aureus. Patient brings with her medical records which were reviewed. She was admitted to [facility] on 01/29. Her Levaquin was discontinued and she was placed on Ancef. Patient later underwent IND on 01/29 with poly-exchange, cultures were negative she was switched over to nafcillin and oral rifampin. Discharge instructions were for patient to continue IV nafcillin plus rifampin for 6 weeks followed by 6 months of oral Keflex plus rifampin. Blood cultures during her stay negative, tissue cultures negative, right knee fluid cultures negative. At the time of my examination is at bedside and patient is resting comfortably in stretcher. She denies any current nausea or vomiting, fevers or chills, diarrhea, headaches, dizziness, shortness of breath or cough. Review of Systems Except as stated in HPI: all other systems reviewed are Neg Past Family Social History Past Medical History Hypertension Diabetes Hypothyroidism Aortic valve replacement Gout Past Surgical History Aortic valve replacement (pig) 2 years ago Right knee replacement Right knee I&D Hysterectomy Tubal ligation Reported Medications Reported Meds & Active Scripts Active Reported Rifadin (Rifampin) 300 Mg Cap 300 Mg PO BID Krill Oil 500 Mg Capsule 500 Mg PO DAILY Metoprolol Tartrate 25 Mg Tab 12.5 Mg PO BID Coq-10 Tr (Coenzyme Q10 (Ubidecarenone)) 100 Mg Cap 100 Mg PO DAILY Zocor (Simvastatin) 40 Mg Tab 40 Mg PO HS Glucophage (Metformin HCl) 500 Mg Tab 500 Mg PO BIDPC With meals Dyazide (Triamterene-Hydrochlorothiazide) 37.5-25 Mg Cap 1 Cap PO DAILY Allopurinol 300 Mg Tab 300 Mg PO HS Synthroid (Levothyroxine Sodium) 150 Mcg Tab 150 Mcg PO DAILY Allergies: Coded Allergies: No Known Allergies (Verified Allergy, Unknown, 02/04/18) Family History Daughter: cancer Social History Denies any tobacco, alcohol, or illicit drug use. Physical Exam Vital Signs Vital Signs Date Time Temp Pulse Resp B/P (MAP) Pulse Ox O2 Delivery O2 Flow Rate FiO2 02/04/18 13:11 16 98 Room Air 02/04/18 12:56 16 02/04/18 11:23 98.1 63 18 120/58 (78) 95 Physical Exam GENERAL: Well-developed obese female in no acute distress. SKIN: No rashes, ecchymoses or lesions. Cool and dry. HEAD: Atraumatic. Normocephalic. No temporal or scalp tenderness. EYES: Pupils equal round and reactive. Extraocular motions intact. No scleral icterus. No injection or drainage. ENT: Nose without bleeding, purulent drainage or septal hematoma. Throat without erythema, tonsillar hypertrophy or exudate. Uvula midline. Airway patent. NECK: Trachea midline. No JVD or lymphadenopathy. Supple, nontender, no meningeal signs. CARDIOVASCULAR: Regular rate and rhythm without murmurs, gallops, or rubs. RESPIRATORY: Clear to auscultation. Breath sounds equal bilaterally. No wheezes , rales, or rhonchi. GASTROINTESTINAL: Abdomen soft, non-tender, nondistended. No hepato-splenomegaly , or palpable masses. No guarding. MUSCULOSKELETAL: Extremities without clubbing, cyanosis, or edema. No calf tenderness. Negative Homans sign bilaterally. Right knee with edema, warmth. Knee dressing dry and intact. NEUROLOGICAL: Awake and alert. Cranial nerves II through XII intact. Motor and sensory grossly within normal limits. Five out of 5 muscle strength in all muscle groups. Normal speech. Laboratory Laboratory Tests Test 02/04/18 13:11 White Blood Count 13.1 Red Blood Count 4.08 Hemoglobin 11.3 Hematocrit 34.3 Mean Corpuscular Volume 84.1 Mean Corpuscular Hemoglobin 27.8 Mean Corpuscular Hemoglobin Concent 33.1 Red Cell Distribution Width 14.9 Platelet Count 314 Mean Platelet Volume 6.8 Neutrophils (%) (Auto) 81.1 Lymphocytes (%) (Auto) 9.2 Monocytes (%) (Auto) 7.4 Eosinophils (%) (Auto) 1.6 Basophils (%) (Auto) 0.7 Neutrophils # (Auto) 10.6 Lymphocytes # (Auto) 1.2 Monocytes # (Auto) 1.0 Eosinophils # (Auto) 0.2 Basophils # (Auto) 0.1 CBC Comment DIFF FINAL Differential Comment Blood Urea Nitrogen 18 Creatinine 0.96 Random Glucose 116 Calcium Level 9.4 Sodium Level 137 Potassium Level 3.6 Chloride Level 100 Carbon Dioxide Level 26.0 Anion Gap 11 Estimat Glomerular Filtration Rate 58 Date/Time Source Procedure Growth Status 02/04/18 13:11 Blood Peripheral Aerobic Blood Culture Pending Received 02/04/18 13:11 Blood Peripheral Anaerobic Blood Culture Pending Received Result Diagram: 02/04/18 1311 02/04/18 1311 Caprini VTE Risk Assessment Caprini VTE Risk Assessment: Mod/High Risk (score >= 2) Caprini Risk Assessment Model Point Value = 1 Point Value = 2 Point Value = 3 Point Value = 5 Age 41-60 Minor surgery BMI > 25 kg/m2 Swollen legs Varicose veins or History of unexplained or recurrent spontaneous Oral contraceptives or hormone replacement Sepsis (< 1 month) Serious lung disease, including pneumonia (< 1 month) Abnormal pulmonary function Acute myocardial infarction Congestive heart failure (< 1 month) History of inflammatory bowel disease Medical patient at bed rest Age 61-74 Arthroscopic surgery Major open surgery (> 45 min) Laparoscopic surgery (> 45 min) Malignancy Confined to bed (> 72 hours) Immobilizing plaster cast Central venous access Age >= 75 History of VTE Family history of VTE Factor V Leiden Prothrombin [id number] Lupus anticoagulant Anticardiolipin antibodies Elevated serum homocysteine Heparin-induced thrombocytopenia Other congenital or acquired thrombophilia Stroke (< 1 month) Elective arthroplasty Hip, pelvis, or leg fracture Acute spinal cord injury (< 1 month) Prophylaxis Regimen Total Risk Factor Score Risk Level Prophylaxis Regimen 0-1 Low Early ambulation 2 Moderate Order ONE of the following: *Sequential Compression Device (SCD) *Heparin 5000 units SQ BID 3-4 Higher Order ONE of the following medications: *Heparin 5000 units SQ TID *Enoxaparin/Lovenox 40 mg SQ daily (WT < 150 kg, CrCl > 30 mL/min) *Enoxaparin/Lovenox 30 mg SQ daily (WT < 150 kg, CrCl > 10-29 mL/min) *Enoxaparin/Lovenox 30 mg SQ BID (WT < 150 kg, CrCl > 30 mL/min) AND/OR *Sequential Compression Device (SCD) 5 or more Highest Order ONE of the following medications: *Heparin 5000 units SQ TID (Preferred with Epidurals) *Enoxaparin/Lovenox 40 mg SQ daily (WT < 150 kg, CrCl > 30 mL/min) *Enoxaparin/Lovenox 30 mg SQ daily (WT < 150 kg, CrCl > 10-29 mL/min) *Enoxaparin/Lovenox 30 mg SQ BID (WT < 150 kg, CrCl > 30 mL/min) AND *Sequential Compression Device (SCD) Assessment and Plan Assessment and Plan 67-year-old female with past medical history significant for hypertension, diabetes, hypothyroidism, and gout who has history of right knee replacement June 2017. Patient developed swelling of the right knee and underwent aspiration and placed on oral Levaquin. Cultures came back positive for MSSA, she was admitted to [facility] and treated with IV antibiotics. She underwent I&D of right knee and discharged with course of p.o. as well as IV antibiotics to complete. She presents to the hospital today with complaints of nausea and vomiting. Right knee septic arthritis -Aspiration done 01/25 positive for MSSA, underwent I&D -CBC reviewed, mild leukocytosis with left shift, afebrile. Right knee positive for swelling and warmth. -check LFT's. -consult ID to assist with antibiotic regimen. -Consult Dr. Wayne for further recommendations -Pain control with as needed [place] or Tylenol Nausea and vomiting -Possibly secondary to rifampin -Anti-emetics as needed Diabetes mellitus -Hold metformin for the moment, Accu-Cheks with insulin sliding scale. -Diabetic diet Hypertension Dyslipidemia - Continue Dyazide, metoprolol, and Zocor Hypothyroidism -Continue home dose levothyroxine Gout -Continue home dose allopurinol DVT prophylaxis; pending ortho evaluation. the above note was scribed by Ms.Marizsca Meadows. I attest that I had a face-to -face encounter with the patient and personally performed the history and physical exam and medical decision making. Discussed Condition With ER and the patient. Physician Certification 2 Midnight Certification Type: Admission for Inpatient Services Order for Inpatient Services The services are ordered in accordance with Medicare regulations or non- Medicare payer requirements, as applicable. In the case of services not specified as inpatient-only, they are appropriately provided as inpatient services in accordance with the 2-midnight benchmark. Estimated LOS (days): 2 days is the estimated time the patient will need to remain in the hospital, assuming treatment plan goals are met and no additional complications. Post-Hospital Plan: Not yet determined Faye Meadows February 04, 2018 15:35 Luis A Barbosa MD February 04, 2018 15:59
[2018-02-04] MEDS ORDERED: DEXTROSE 50% IN WATER 50 ML VIAL(D50) IV PUSH PRN (15:45)
[2018-02-04] MEDS ORDERED: ACETAMINOPHEN 325 MG TAB PO PRN (15:45)
[2018-02-04] MEDS ORDERED: PROCHLORPERAZINE INJ 10 MG/2 ML VIAL IV PUSH PRN (15:45)
[2018-02-04] MEDS ORDERED: GLUCAGON 1 MG/ML VIAL OTHER PRN (15:45)
--- NOTE | 2018-02-04 16:56 | PD.CONS ---
HPI Service Orthopedic Surgeons Consult Requested By Dr. Barbosa Reason for Consult Infected right total knee replacement Primary Care Physician Juan Levine MD Admission Diagnosis Nausea vomitin, right total knee infection, leukocytosis, diabetes me Diagnoses: Chief Complaint: Right knee pain with swelling. Nausea and vomiting History of Present Illness This patient is a 67-year-old female known to the [facility]. On July 07, 2017 she came to elective right total knee replacement arthroplasty. She had a totally unremarkable postoperative course. She had no abnormal swelling or difficulty with her rehabilitation. She was last seen by me in October of this year. She had outpatient follow-up and was doing quite well. She was having no constitutional symptoms with excellent range of motion. She was out of state visiting a relative and had a when suddenly she had acute onset of swelling in her right knee. She presented to the emergency room and was evaluated by an orthopedic surgeon. She had aspiration which showed evidence of an infection. We communicated with her orthopedic surgeon and furnished him operative records. The patient came to revision of her right total knee with irrigation and debridement and changing of the polyethylene. The patient has evidence of a deep infection with MSSA. She has been on antibiotics. She flew back today. She is complaining of nausea and vomiting and presented to the emergency room. I spoke with Dr. Magana, the emergency room physician. I am seeing her in consultation regarding the same Review of Systems Constitutional: COMPLAINS OF: Fatigue, Fever Endocrine: DENIES: Abnorml menstrual pattern, Heat/cold intolerance, Polydipsia , Polyuria, Polyphagia Eyes: DENIES: Blurred vision, Diplopia, Eye inflammation, Eye pain, Vision loss , Photosensitivity, Double Vision Ears, nose, mouth, throat: DENIES: Tinnitus, Hearing loss, Vertigo, Nasal discharge, Oral lesions, Throat pain, Hoarseness, Ear Pain, Running Nose, Epistaxis, Sinus Pain, Toothache, Odynophagia Respiratory: DENIES: Apneas, Cough, Snoring, Wheezing, Hemoptysis, Sputum production, Shortness of breath Cardiovascular: DENIES: Chest pain, Palpitations, Syncope, Dyspnea on Exertion , PND, Lower Extremity Edema, Orthopnea, Claudication Gastrointestinal: COMPLAINS OF: Nausea, Vomiting Genitourinary: DENIES: Abnormal vaginal bleeding, Dysmenorrhea, Dyspareunia, Sexual dysfunction, Urinary frequency, Urinary incontinence, Urgency, Hematuria , Dysuria, Nocturia, Vaginal discharge Musculoskeletal: COMPLAINS OF: Joint pain, Joint Swelling Integumentary: DENIES: Abnormal pigmentation, Pruritus, Rash, Nail changes, Breast masses, Breast skin changes, Nipple discharge Hematologic/lymphatic: DENIES: Bruising, Lymphadenopathy Immunologic/allergic: DENIES: Eczema, Urticaria Neurologic: DENIES: Abnormal gait, Headache, Localized weakness, Paresthesias, Seizures, Speech Problems, Tremor, Poor Balance Psychiatric: DENIES: Anxiety, Confusion, Mood changes, Depression, Hallucinations, Agitation, Suicidal Ideation, Homicidal Ideation, Delusions Past Family Social History Past Medical History Hypertension Diabetes Hypothyroidism Aortic valve replacement Gout Past Surgical History Aortic valve replacement (pig) 2 years ago Right knee replacement Right knee I&D Hysterectomy Tubal ligation Allergies: Coded Allergies: No Known Allergies (Verified Allergy, Unknown, 02/04/18) Active Ordered Medications Current Medications Medications (Trade) Dose Ordered Sig/Patricia Route Start Time Stop Time Status Last Admin (D50w (Vial) Inj) 50 ml UNSCH PRN IV PUSH 02/04/18 15:45 (Glucagon Inj) 1 mg UNSCH PRN OTHER 02/04/18 15:45 (NovoLOG SUPPLEMENTAL SCALE) 1 ACHS SLIDING SCALE SQ 02/04/18 17:00 (Compazine Inj) 5 mg Q8H PRN IV PUSH 02/04/18 15:45 (Tylenol) 650 mg Q4H PRN PO 02/04/18 15:45 ([place] 5-325 Mg) 1 tab Q4H PRN PO 02/04/18 15:45 (Zyloprim) 300 mg HS PO 02/04/18 21:00 (Synthroid) 150 mcg DAILY@0600 PO 02/05/18 06:00 (Lopressor) 12.5 mg BID PO 02/04/18 21:00 (Rifampin) 300 mg BID PO 02/04/18 21:00 (Dyazide 37.5-25 Mg) 1 cap DAILY PO 02/05/18 09:00 (Pravachol) 80 mg HS PO 02/04/18 21:00 Reported Meds & Active Scripts Active Reported Rifadin (Rifampin) 300 Mg Cap 300 Mg PO BID Krill Oil 500 Mg Capsule 500 Mg PO DAILY Metoprolol Tartrate 25 Mg Tab 12.5 Mg PO BID Coq-10 Tr (Coenzyme Q10 (Ubidecarenone)) 100 Mg Cap 100 Mg PO DAILY Zocor (Simvastatin) 40 Mg Tab 40 Mg PO HS Glucophage (Metformin HCl) 500 Mg Tab 500 Mg PO BIDPC With meals Dyazide (Triamterene-Hydrochlorothiazide) 37.5-25 Mg Cap 1 Cap PO DAILY Allopurinol 300 Mg Tab 300 Mg PO HS Synthroid (Levothyroxine Sodium) 150 Mcg Tab 150 Mcg PO DAILY Family History Daughter: cancer Social History Denies any tobacco, alcohol, or illicit drug use. Physical Exam Vital Signs Vital Signs Date Time Temp Pulse Resp B/P (MAP) Pulse Ox O2 Delivery O2 Flow Rate FiO2 02/04/18 13:11 16 98 Room Air 02/04/18 12:56 16 02/04/18 11:23 98.1 63 18 120/58 (78) 95 Physical Exam HEENT: Normocephalic atraumatic pupils equal round reactive. NECK: Supple. No abnormal masses. Full range of motion. CHEST: Clear to auscultation with no rales or rhonchi's or wheezes. HEART: Regular rate and rhythm. No murmurs. ABDOMEN: Soft, nontender, no masses. Normal active bowel sounds. GENITOURINARY: Deferred MUSCULOSKELETAL: Right knee has a nonremovable dressing. There is mild redness seen laterally. Skin wrinkles are intact consistent with decreasing swelling. Range of motion is limited. Mild pain with range of motion. Mild swelling. Mild warmth. No calf tenderness. Dorsalis pedis 2+ Laboratory Laboratory Tests Test 02/04/18 13:11 White Blood Count 13.1 Red Blood Count 4.08 Hemoglobin 11.3 Hematocrit 34.3 Mean Corpuscular Volume 84.1 Mean Corpuscular Hemoglobin 27.8 Mean Corpuscular Hemoglobin Concent 33.1 Red Cell Distribution Width 14.9 Platelet Count 314 Mean Platelet Volume 6.8 Neutrophils (%) (Auto) 81.1 Lymphocytes (%) (Auto) 9.2 Monocytes (%) (Auto) 7.4 Eosinophils (%) (Auto) 1.6 Basophils (%) (Auto) 0.7 Neutrophils # (Auto) 10.6 Lymphocytes # (Auto) 1.2 Monocytes # (Auto) 1.0 Eosinophils # (Auto) 0.2 Basophils # (Auto) 0.1 CBC Comment DIFF FINAL Differential Comment Blood Urea Nitrogen 18 Creatinine 0.96 Random Glucose 116 Calcium Level 9.4 Sodium Level 137 Potassium Level 3.6 Chloride Level 100 Carbon Dioxide Level 26.0 Anion Gap 11 Estimat Glomerular Filtration Rate 58 Date/Time Source Procedure Growth Status 02/04/18 13:11 Blood Peripheral Aerobic Blood Culture Pending Received 02/04/18 13:11 Blood Peripheral Anaerobic Blood Culture Pending Received Result Diagram: 02/04/18 1311 02/04/18 1311 Imaging X-rays reviewed shows evidence of a satisfactory position total knee replacement without signs of loosening Assessment & Plan Assessment and Plan Status post right total knee replacement arthroplasty, 7 months postop. Infected right total knee replacement arthroplasty, MSSA. Status post debridement of right total knee replacement. PLAN: Continue IV antibiotics. Medical evaluation and treatment. We will watch her clinically. If constitutional symptoms of infection increase , consider a second debridement and placement of antibiotic impregnated calcium sulfate beads. We will follow while she is in the hospital and continue to follow her for her knee condition as an outpatient when she is discharged Jacob Wayne MD February 04, 2018 16:56
[2018-02-04] MEDS: INSULIN ASPART SUPPLEMENTAL SCALE SQ SCH ×2 (17:00→21:00)
--- NOTE | 2018-02-04 17:01 | PD.ID.CON ---
History of Present Illness Service ID Consult Requested By Dr Momin Reason for Consult TKA infection Primary Care Physician Juan Levine MD Diagnoses: History of Present Illness 67 F with DM and morbid obesity and DJD sp R TKA in 2016 developped redness, pain swelling of the R knee, and fevers, chills 2 weeks ago while travelling in [place] she underwent R knee I+D and exchange of plastic components 6 days ago She was diagnoses with MSSA and was started on Nafcillin via PICC line + Rifampin She presetnded today @ ER with nausea, vomiting Denies abdominal pain NO fever + moderate leukocytosis up to 13K Review of Systems Except as stated in HPI: all other systems reviewed are Neg Past Family Social History Allergies: Coded Allergies: No Known Allergies (Verified Allergy, Unknown, 02/04/18) Past Medical History Hypertension Diabetes Hypothyroidism Aortic valve replacement Gout Past Surgical History Aortic valve replacement (porcine) 2 years ago Right knee replacement Right knee I&D Hysterectomy Tubal ligation Reported Medications Active Ordered Medications Medications where reviewed in EMR Antibiotics Include: none Family History Daughter: cancer Social History Denies any tobacco, alcohol, or illicit drug use. Physical Exam Vital Signs Vital Signs Date Time Temp Pulse Resp B/P (MAP) Pulse Ox O2 Delivery O2 Flow Rate FiO2 02/04/18 13:11 16 98 Room Air 02/04/18 12:56 16 02/04/18 11:23 98.1 63 18 120/58 (78) 95 Physical Exam CONSTITUTIONAL/GENERAL: This is a morbidly obese patient, in no apparent distress. TUBES/LINES/DRAINS: PICC in place LUE - site OK SKIN: No jaundice, rashes, or lesions. Skin temperature appropriate. Not diaphoretic. HEAD: Atraumatic. Normocephalic. EYES: Pupils equal and round and reactive. Extraocular motions intact. No scleral icterus. No injection or drainage. Fundi not examined. ENT: Hearing grossly normal. Nose without bleeding or purulent drainage. Throat without visible erythema, exudates, masses, or lesions. NECK: Trachea midline. Supple, nontender. No palpable thyroid enlargement or nodularity. CARDIOVASCULAR: Regular rate and rhythm without murmurs, gallops, or rubs. No JVD. Peripheral pulses symmetric. RESPIRATORY/CHEST: Symmetric, unlabored respirations. Clear to auscultation. Breath sounds equal bilaterally. No wheezes, rales, or rhonchi. GASTROINTESTINAL: Abdomen soft, non-tender, nondistended. No hepato-splenomegaly , or palpable masses. No guarding. Bowel sounds present. GENITOURINARY: Without palpable bladder distension. MUSCULOSKELETAL: Extremities without clubbing, cyanosis, or edema. No joint tenderness or effusion noted. No calf tenderness. No mottling or clubbing. R knee with post-op special dressing in place, intact, no stainineg + edema , no erythema no ascending cellulitis LYMPHATICS: No palpable cervical or supraclavicular adenopathy. NEUROLOGICAL: Awake and alert. Motor and sensory grossly within normal limits. Follows commands. Clear speech Moves all extremities. PSYCHIATRIC: No obvious anxiety/depression. no apparent hallucinations or other psychotic thought process. Laboratory Laboratory Tests Test 02/04/18 13:11 White Blood Count 13.1 Red Blood Count 4.08 Hemoglobin 11.3 Hematocrit 34.3 Mean Corpuscular Volume 84.1 Mean Corpuscular Hemoglobin 27.8 Mean Corpuscular Hemoglobin Concent 33.1 Red Cell Distribution Width 14.9 Platelet Count 314 Mean Platelet Volume 6.8 Neutrophils (%) (Auto) 81.1 Lymphocytes (%) (Auto) 9.2 Monocytes (%) (Auto) 7.4 Eosinophils (%) (Auto) 1.6 Basophils (%) (Auto) 0.7 Neutrophils # (Auto) 10.6 Lymphocytes # (Auto) 1.2 Monocytes # (Auto) 1.0 Eosinophils # (Auto) 0.2 Basophils # (Auto) 0.1 CBC Comment DIFF FINAL Differential Comment Blood Urea Nitrogen 18 Creatinine 0.96 Random Glucose 116 Calcium Level 9.4 Sodium Level 137 Potassium Level 3.6 Chloride Level 100 Carbon Dioxide Level 26.0 Anion Gap 11 Estimat Glomerular Filtration Rate 58 Date/Time Source Procedure Growth Status 02/04/18 13:11 Blood Peripheral Aerobic Blood Culture Pending Received 02/04/18 13:11 Blood Peripheral Anaerobic Blood Culture Pending Received Result Diagram: 02/04/18 1311 02/04/18 1311 Assessment and Plan Assessment and Plan Prosthetic knee infection, Right, MSSA Presenting with nausea, vomiting - r/o side effect vs sepsis DM start cefazolin - hold Rifampin untill LFTs back chk LFTs - chk UA/C+S, bl clx pt was instructed not to use rifampin as single agent Kenna Delgadillo MD February 04, 2018 17:01
[2018-02-04 17:09] VITALS: BP 111/58; PULSE 83; RESP 18; O2SAT 98
[2018-02-04 17:36] VITALS: BP 134/64; PULSE 79; RESP 17; TEMP 97.7; O2SAT 95
[2018-02-04] MEDS: ceFAZolin 2 GM PREMIX 50 ML IV SCH (17:55)
[2018-02-04 18:22] LABS: ALBUMIN 2.8 GM/DL (3.4-5.0); DIRECT BILIRUBIN ADULT 0.5 MG/DL (0.0-0.2)
[2018-02-04 18:23] LABS: INDIRECT BILIRUBIN 1.1 MG/DL (0.0-0.8); TOTAL BILIRUBIN ADULT 1.6 MG/DL (0.2-1.0); TOTAL PROTEIN 7.8 GM/DL (6.4-8.2)
[2018-02-04 20:00] VITALS: BP 146/67; PULSE 76; RESP 18; TEMP 97.3; O2SAT 98
[2018-02-04] MEDS ORDERED: BENZOCAINE 6 MG/MENTHOL 10 MG LOZENGE BUCCAL PRN (22:15)
[2018-02-04] MEDS: ALLOPURINOL 300 MG TAB PO SCH (22:16)
[2018-02-04] MEDS: PRAVASTATIN SOD 80 MG TAB PO SCH (22:16)
[2018-02-04] MEDS: METOPROLOL TARTRATE 25 MG TAB PO SCH (22:16)
[2018-02-04] MEDS: RIFAMPIN 150 MG CAP PO SCH (22:24)
[2018-02-04 23:23] LABS: BILIRUBIN, URINE NEG (NEG); BLOOD, URINE MOD (NEG); GLUCOSE,URINE NEG (NEG); KETONE, URINE NEG (NEG); MUCUS URINE FEW /lpf (OCC); NITRITE,URINE NEG (NEG); SQUAMOUS EPITHELIAL CELL URINE 5 /hpf (0-5); URINE COLOR DARK-YELLOW (YELLW/STRAW); URINE LEUKOCYTE ESTERASE NEG (NEG)
[2018-02-05] VITALS: BP 136/62; PULSE 64; RESP 18; TEMP 97.4; O2SAT 96
[2018-02-05] MEDS: ceFAZolin 2 GM PREMIX 50 ML IV SCH ×3 (01:49→17:26)
[2018-02-05] MEDS: LEVOTHYROXINE SODIUM 150 MCG TAB PO SCH (05:14)
[2018-02-05 08:00] VITALS: BP 128/64; PULSE 66; RESP 18; TEMP 98.1; O2SAT 95
[2018-02-05] MEDS: INSULIN ASPART SUPPLEMENTAL SCALE SQ SCH ×4 (08:00→21:00)
--- NOTE | 2018-02-05 08:06 | PD.ORT.PN ---
Subjective Subjective Remarks Doing well. No complaints. Medication started. Already has PICC line from outside institution. Dr. Magana indicated patient has MSSA Objective Vitals Vital Signs Date Time Temp Pulse Resp B/P (MAP) Pulse Ox O2 Delivery O2 Flow Rate FiO2 02/05/18 00:00 97.4 64 18 136/62 (86) 96 02/04/18 20:00 97.3 76 18 146/67 (93) 98 02/04/18 17:36 97.7 79 17 134/64 (87) 95 02/04/18 17:11 02/04/18 17:09 83 18 111/58 (75) 98 Room Air 02/04/18 13:11 16 98 Room Air 02/04/18 12:56 16 02/04/18 12:40 76 16 137/73 (94) 97 02/04/18 11:23 98.1 63 18 120/58 (78) 95 I/O 02/04/18 02/04/18 02/04/18 02/05/18 02/05/18 02/05/18 07:00 15:00 23:00 07:00 15:00 23:00 Intake Total 50 ml Balance 50 ml Intake IV Total 50 ml # Voids 3 Result Diagram: 02/04/18 1311 02/04/18 1311 Objective Remarks Right knee with nonremovable bandage. Mild redness laterally unchanged from yesterday. Skin wrinkles indicates swelling is decreasing. No calf tenderness. Neuro exam normal Assessment & Plan Assessment and Plan Status post right total knee replacement arthroplasty, 7 months postop. Infected right total knee replacement arthroplasty, MSSA. Status post debridement of right total knee replacement. PLAN: Continue IV antibiotics. Medical evaluation and treatment. We will watch her clinically. If constitutional symptoms of infection increase , consider a second debridement and placement of antibiotic impregnated calcium sulfate beads. We will follow while she is in the hospital and continue to follow her for her knee condition as an outpatient when she is discharged Sed rate and C-reactive protein ordered for baseline post debridement. Anticipate 6 weeks of IV antibiotics. Patient advised that she is at risk of coming to two-stage revision if infection persists. Jacob Wayne MD Feb 05, 2018 08:06
--- NOTE | 2018-02-05 08:39 | HHI.PR ---
Subjective Remarks Says pain in her left knee is controlled by medications. No fever or chills overnight. No nausea or vomiting or diarrhea or constipation. However she is complaining of some sore throat. Objective Vitals Vital Signs Date Time Temp Pulse Resp B/P (MAP) Pulse Ox O2 Delivery O2 Flow Rate FiO2 02/05/18 00:00 97.4 64 18 136/62 (86) 96 02/04/18 20:00 97.3 76 18 146/67 (93) 98 02/04/18 17:36 97.7 79 17 134/64 (87) 95 02/04/18 17:11 02/04/18 17:09 83 18 111/58 (75) 98 Room Air 02/04/18 13:11 16 98 Room Air 02/04/18 12:56 16 02/04/18 12:40 76 16 137/73 (94) 97 02/04/18 11:23 98.1 63 18 120/58 (78) 95 I/O 02/04/18 02/04/18 02/04/18 02/05/18 02/05/18 02/05/18 07:00 15:00 23:00 07:00 15:00 23:00 Intake Total 50 ml Balance 50 ml Intake IV Total 50 ml # Voids 3 Result Diagram: 02/04/18 1311 02/04/18 1311 Objective Remarks GENERAL: Well-developed obese female in no acute distress. CARDIOVASCULAR: Regular rate and rhythm without murmurs, gallops, or rubs. RESPIRATORY: Clear to auscultation. Breath sounds equal bilaterally. No wheezes , rales, or rhonchi. GASTROINTESTINAL: Abdomen soft, non-tender, nondistended. No hepato-splenomegaly , or palpable masses. No guarding. MUSCULOSKELETAL: Extremities without clubbing, cyanosis, or edema. No calf tenderness. Negative Homans sign bilaterally. Right knee with edema, warmth. Knee dressing dry and intact. NEUROLOGICAL: Awake and alert. Cranial nerves II through XII intact. Motor and sensory grossly within normal limits. Five out of 5 muscle strength in all muscle groups. Normal speech. A/P Assessment and Plan 67-year-old female with past medical history significant for hypertension, diabetes, hypothyroidism, and gout who has history of right knee replacement June 2017. Patient developed swelling of the right knee and underwent aspiration and placed on oral Levaquin. Cultures came back positive for MSSA, she was admitted to [facility] and treated with IV antibiotics. She underwent I&D of right knee and discharged with course of p.o. as well as IV antibiotics to complete. She presents to the hospital today with complaints of nausea and vomiting. Right knee septic arthritis -Aspiration done 01/25 positive for MSSA, underwent I&D -CBC reviewed, mild leukocytosis with left shift, afebrile. Right knee positive for swelling and warmth. -check LFT's. -consult ID to assist with antibiotic regimen.Will need 6 weeks of IV abx -Consult Dr. Wayne for further recommendations -Pain control with as needed Lester or Tylenol Nausea and vomiting -Possibly secondary to rifampin -Anti-emetics as needed Diabetes mellitus 2 -Hold metformin for the moment, Accu-Cheks with insulin sliding scale. -Diabetic diet Hypertension Dyslipidemia - Continue Dyazide, metoprolol, and Zocor Hypothyroidism -Continue home dose levothyroxine Gout -Continue home dose allopurinol Sore throat Cepacol annabel prn Discussed Condition With nurse, patient. Carolee Berry MD Feb 05, 2018 08:39
[2018-02-05] MEDS: TRIAMTERENE/HCTZ 37.5 MG/25 MG CAP PO SCH (09:02)
[2018-02-05] MEDS: METOPROLOL TARTRATE 25 MG TAB PO SCH ×2 (09:02→21:33)
[2018-02-05] MEDS: RIFAMPIN 150 MG CAP PO SCH ×2 (09:02→21:33)
[2018-02-05] MEDS: PILL SPLITTER OTHER PRN (09:02)
[2018-02-05 12:00] VITALS: BP 128/70; PULSE 83; RESP 19; TEMP 97.6; O2SAT 96
[2018-02-05] MEDS ORDERED: BENZOCAINE 6 MG/MENTHOL 10 MG LOZENGE BUCCAL PRN (14:45)
[2018-02-05 15:06] LABS: ALT (GPT) 22 U/L (10-53); AST (GOT) 27 U/L (15-37); BICARBONATE 26.6 MEQ/L (21.0-32.0); BLOOD UREA NITROGEN 15 MG/DL (7-18); CHLORIDE 100 MEQ/L (98-107); GLOMERULAR FILTRATION RATE 50 ML/MIN (>89); GLUCOSE,RANDOM 185 MG/DL (74-106); SODIUM (NA) 139 MEQ/L (136-145)
[2018-02-05 15:09] LABS: ALKALINE PHOSPHATASE 104 U/L (45-117); TOTAL BILIRUBIN ADULT 1.6 MG/DL (0.2-1.0); TOTAL PROTEIN 8.2 GM/DL (6.4-8.2)
[2018-02-05 15:19] LABS: AUTOMATED NEUTROPHIL # 8.9 TH/MM3 (1.8-7.7); BASOPHIL # 0.1 TH/MM3 (0-0.2); EOSINOPHIL # 0.2 TH/MM3 (0-0.4); HEMATOCRIT 34.4 % (35.0-46.0); HEMOGLOBIN 11.5 GM/DL (11.6-15.3); LYMPH % 11.1 % (9.0-44.0); LYMPHOCYTE # 1.3 TH/MM3 (1.0-4.8); MEAN CORPUSCULAR HEMOGLOBIN 27.7 PG (27.0-34.0); MEAN CORPUSCULAR HGB CONC 33.4 % (32.0-36.0); MEAN PLATELET VOLUME 7.3 FL (7.0-11.0); MONO % 6.5 % (0.0-8.0); MONOCYTE # 0.7 TH/MM3 (0-0.9); NEUT % 79.4 % (16.0-70.0); PLATELET COUNT 351 TH/MM3 (150-450); RED BLOOD COUNT 4.14 MIL/MM3 (4.00-5.30); RED CELL DISTRIBUTION WIDTH 14.7 % (11.6-17.2); WHITE BLOOD COUNT 11.3 TH/MM3 (4.0-11.0)
[2018-02-05 16:00] VITALS: BP 128/64; PULSE 86; RESP 18; TEMP 98.3; O2SAT 94
--- NOTE | 2018-02-05 18:06 | HHI.IDPN ---
Subjective Subjective Remarks pt seen earlier today no c/o LFTs noted resolved nausea no fever Antibiotics cefazolin rifampin Allergies: Coded Allergies: No Known Allergies (Verified Allergy, Unknown, 02/04/18) Objective . Vital Signs Date Time Temp Pulse Resp B/P (MAP) Pulse Ox O2 Delivery O2 Flow Rate FiO2 02/05/18 16:00 98.3 86 18 128/64 (85) 94 02/05/18 12:00 97.6 83 19 128/70 (89) 96 02/05/18 08:00 98.1 66 18 128/64 (85) 95 02/05/18 00:00 97.4 64 18 136/62 (86) 96 02/04/18 20:00 97.3 76 18 146/67 (93) 98 02/05/18 02/05/18 02/06/18 15:00 23:00 07:00 Intake Total 50 ml Balance 50 ml Intake IV Total 50 ml . Laboratory Tests Test 02/04/18 13:11 02/05/18 11:37 02/05/18 11:54 White Blood Count 13.1 TH/MM3 11.3 TH/MM3 Red Blood Count 4.08 MIL/MM3 4.14 MIL/MM3 Hemoglobin 11.3 GM/DL 11.5 GM/DL Hematocrit 34.3 % 34.4 % Mean Corpuscular Volume 84.1 FL 83.0 FL Mean Corpuscular Hemoglobin 27.8 PG 27.7 PG Mean Corpuscular Hemoglobin Concent 33.1 % 33.4 % Red Cell Distribution Width 14.9 % 14.7 % Platelet Count 314 TH/MM3 351 TH/MM3 Mean Platelet Volume 6.8 FL 7.3 FL Neutrophils (%) (Auto) 81.1 % 79.4 % Lymphocytes (%) (Auto) 9.2 % 11.1 % Monocytes (%) (Auto) 7.4 % 6.5 % Eosinophils (%) (Auto) 1.6 % 2.0 % Basophils (%) (Auto) 0.7 % 1.0 % Neutrophils # (Auto) 10.6 TH/MM3 8.9 TH/MM3 Lymphocytes # (Auto) 1.2 TH/MM3 1.3 TH/MM3 Monocytes # (Auto) 1.0 TH/MM3 0.7 TH/MM3 Eosinophils # (Auto) 0.2 TH/MM3 0.2 TH/MM3 Basophils # (Auto) 0.1 TH/MM3 0.1 TH/MM3 CBC Comment DIFF FINAL DIFF FINAL Differential Comment Erythrocyte Sedimentation Rate 111 mm/hr Laboratory Tests Test 02/04/18 13:11 02/05/18 11:37 Blood Urea Nitrogen 18 MG/DL 15 MG/DL Creatinine 0.96 MG/DL 1.10 MG/DL Random Glucose 116 MG/DL 185 MG/DL Calcium Level 9.4 MG/DL 9.0 MG/DL Sodium Level 137 MEQ/L 139 MEQ/L Potassium Level 3.6 MEQ/L 3.6 MEQ/L Chloride Level 100 MEQ/L 100 MEQ/L Carbon Dioxide Level 26.0 MEQ/L 26.6 MEQ/L Anion Gap 11 MEQ/L 12 MEQ/L Estimat Glomerular Filtration Rate 58 ML/MIN 50 ML/MIN Total Bilirubin 1.6 MG/DL 1.6 MG/DL Direct Bilirubin 0.5 MG/DL Indirect Bilirubin 1.1 MG/DL Aspartate Amino Transf (AST/SGOT) 30 U/L 27 U/L Alanine Aminotransferase (ALT/SGPT) 27 U/L 22 U/L Alkaline Phosphatase 95 U/L 104 U/L Total Protein 7.8 GM/DL 8.2 GM/DL Albumin 2.8 GM/DL 3.0 GM/DL C-Reactive Protein 4.70 MG/DL Microbiology Date/Time Source Procedure Growth Status 02/04/18 13:11 Blood Peripheral Aerobic Blood Culture - Preliminary NO GROWTH IN 1 DAY Resulted 02/04/18 13:11 Blood Peripheral Anaerobic Blood Culture - Preliminary NO GROWTH IN 1 DAY Resulted 02/04/18 13:00 Blood Peripheral Aerobic Blood Culture - Preliminary NO GROWTH IN 1 DAY Resulted 02/04/18 13:00 Blood Peripheral Anaerobic Blood Culture - Preliminary NO GROWTH IN 1 DAY Resulted Physical Exam CONSTITUTIONAL/GENERAL: This is a morbidly obese patient, in no apparent distress. TUBES/LINES/DRAINS: PICC in place LUE - site OK SKIN: No jaundice, rashes, or lesions. EYES: No scleral icterus. CARDIOVASCULAR: Regular rate and rhythm without murmurs, gallops, or rubs. No JVD. Peripheral pulses symmetric. RESPIRATORY/CHEST: Symmetric, unlabored respirations. Clear to auscultation. Breath sounds equal bilaterally. No wheezes, rales, or rhonchi. GASTROINTESTINAL: Abdomen soft, non-tender, nondistended. No hepato-splenomegaly , or palpable masses. No guarding. Bowel sounds present. MUSCULOSKELETAL: Extremities without clubbing, cyanosis, or edema. No joint tenderness or effusion noted. No calf tenderness. No mottling or clubbing. R knee with post-op special dressing in place, intact, no stainineg + edema , no erythema no ascending cellulitis NEUROLOGICAL: Awake and alert. Motor and sensory grossly within normal limits. Follows commands. Clear speech Moves all extremities. PSYCHIATRIC:calm and coperative Assessment & Plan Remarks Prosthetic knee infection, Right, MSSA - quite high ESR Presenting with nausea, vomiting - r/o side effect vs sepsis DM cont cefazolin cont Rifampin fu LFTs fu blood and urine clx US gallbladder Kenna Delgadillo MD Feb 05, 2018 18:06
[2018-02-05 20:00] VITALS: BP 161/70; PULSE 76; RESP 20; TEMP 98.6; O2SAT 98
[2018-02-05] MEDS: ALLOPURINOL 300 MG TAB PO SCH (21:33)
[2018-02-05] MEDS: PRAVASTATIN SOD 80 MG TAB PO SCH (21:33)
[2018-02-06 00:43] VITALS: BP 112/56; PULSE 77; RESP 18; TEMP 98.2; O2SAT 95
[2018-02-06] MEDS: ceFAZolin 2 GM PREMIX 50 ML IV SCH ×3 (01:50→17:39)
[2018-02-06] MEDS: ACETAMINOPHEN/HYDROcodone 325 MG/5 MG TAB PO PRN (01:57)
[2018-02-06] MEDS: LEVOTHYROXINE SODIUM 150 MCG TAB PO SCH (05:45)
[2018-02-06 08:00] VITALS: BP 150/78; PULSE 67; RESP 20; TEMP 97.6; O2SAT 96
[2018-02-06] MEDS: INSULIN ASPART SUPPLEMENTAL SCALE SQ SCH ×4 (08:00→20:58)
--- NOTE | 2018-02-06 08:13 | PD.ORT.PN ---
Subjective Subjective Remarks Doing better. She has less knee pain and notes less warmth. Some surgical pain from her I&D up [place] but 'doing fine'. NO new CP or SOB. Objective Vitals Vital Signs Date Time Temp Pulse Resp B/P (MAP) Pulse Ox O2 Delivery O2 Flow Rate FiO2 02/06/18 00:43 98.2 77 18 112/56 (74) 95 02/05/18 20:00 98.6 76 20 161/70 (100) 98 02/05/18 16:00 98.3 86 18 128/64 (85) 94 02/05/18 12:00 97.6 83 19 128/70 (89) 96 I/O 02/05/18 02/05/18 02/05/18 02/06/18 02/06/18 02/06/18 07:00 15:00 23:00 07:00 15:00 23:00 Intake Total 50 ml 50 ml 1200 ml 50 ml Balance 50 ml 50 ml 1200 ml 50 ml Intake Oral 1200 ml IV Total 50 ml 50 ml 50 ml # Voids 3 8 4 # Bowel Movements 0 Result Diagram: 02/05/18 1154 02/05/18 1137 Objective Remarks Laying in bed NAD VSS RLE Knee dressing intact anterior, no new drainage, erythema present but less than 2 days prior Mild swelling, mild effusion +motor at distal, +sens, Neg homans Assessment & Plan Assessment and Plan Status post right total knee replacement arthroplasty, 7 months postop. Infected right total knee replacement arthroplasty, MSSA. Status post debridement of right total knee replacement 7 days ago (up [place]) PLAN: Continue IV antibiotics. Medical evaluation and treatment. We will watch her clinically. Her erythema seems to be improving If constitutional symptoms of infection increase, consider a second debridement and placement of antibiotic impregnated calcium sulfate beads. We will follow while she is in the hospital and continue to follow her for her knee condition as an outpatient when she is discharged Anticipate 6 weeks of IV antibiotics. Patient advised that she is at risk of coming to two-stage revision if infection persists. Leora Castro Feb 06, 2018 08:13
[2018-02-06] MEDS: RIFAMPIN 150 MG CAP PO SCH ×2 (09:47→20:57)
[2018-02-06] MEDS: METOPROLOL TARTRATE 25 MG TAB PO SCH ×2 (09:48→20:58)
[2018-02-06] MEDS: TRIAMTERENE/HCTZ 37.5 MG/25 MG CAP PO SCH (09:52)
--- NOTE | 2018-02-06 10:28 | RADRPT ---
EXAM DATE: 02/06/2018 9:56 AM EDT AGE/SEX: 67 years / Female INDICATIONS: Nausea and vomiting. Right upper quadrant pain. CLINICAL DATA: This is the patient's initial encounter. Patient reports that signs and/or symptoms h ave been present for 1 day and indicates a pain score of 0/10. MEDICAL/SURGICAL HISTORY: . Hysterectomy. Tubal ligation. COMPARISON: No prior [place] exams available for comparison MEASUREMENTS (cm x cm x cm): Liver:__ 16.7 cm length Common Bile Duct:__ 3mm FINDINGS: Liver: The liver demonstrates heterogeneous echotexture with increased echogenicity consistent with fatty infiltration or diffuse infiltrative process. There is a rounded area of masslike decreased ech ogenicity identified within the left lobe measuring 4.9 x 3.7 x 3.0 cm. Portal Vein: Hepatopedal flow seen in portal vein. Common Duct: No intraluminal mass or stone visualized. Gallbladder: Multiple gallstones identified within the gallbladder. No evidence of wall thickening. Pancreas: The visualized portions are within normal limits Right Kidney: No mass or hydronephrosis Other: None. CONCLUSION: 1. Fatty infiltration of the liver with a area of decreased echogenicity identified within the left lobe. This may represent a true mass versus an area of focal fat sparing. Further evaluation with con trast-enhanced CT or MRI is recommended to exclude a mass. 2. Cholelithiasis. Electronically signed by: Aleksandra Abbott MD 02/06/2018 10:27 AM EDT
[2018-02-06] MEDS ORDERED: SENNOSIDES 8.6 MG TAB PO PRN (11:00)
[2018-02-06] MEDS ORDERED: LACTULOSE SYRUP 20 GM/30 ML CUP PO PRN (11:00)
[2018-02-06] MEDS ORDERED: BISACODYL 10 MG SUPP RECTAL PRN (11:00)
[2018-02-06] MEDS ORDERED: MAGNESIUM HYDROXIDE SUSP 30 ML CUP PO PRN (11:00)
[2018-02-06] MEDS ORDERED: NALOXONE HCL 0.4 MG/ML AMP IV PUSH PRN (11:00)
[2018-02-06 12:00] VITALS: BP 127/71; PULSE 78; RESP 20; TEMP 98.1; O2SAT 94
[2018-02-06] MEDS ORDERED: GADODIAMIDE PF 287 MG/ML 20 ML VIAL (for RAD MRI) IVCONTRAST ONE (13:00)
[2018-02-06] MEDS: SODIUM CHLOR 0.9% 1000 ML INJ 1,000 ML IV SCH ×2 (13:14→21:09)
--- NOTE | 2018-02-06 14:14 | HHI.PR ---
Subjective Remarks Follow-up right knee septic joint/nausea vomiting no more nausea no vomiting. No abdominal pain at this time. Able to tolerate food. With constipation. Bowel regimen started. Denies any fever or chills. She was able to ambulate today has pain at the surgical site at her right knee. Objective Vitals Vital Signs Date Time Temp Pulse Resp B/P (MAP) Pulse Ox O2 Delivery O2 Flow Rate FiO2 02/06/18 08:00 97.6 67 20 150/78 (102) 96 02/06/18 00:43 98.2 77 18 112/56 (74) 95 02/05/18 20:00 98.6 76 20 161/70 (100) 98 02/05/18 16:00 98.3 86 18 128/64 (85) 94 I/O 02/05/18 02/05/18 02/05/18 02/06/18 02/06/18 02/06/18 06:59 14:59 22:59 06:59 14:59 22:59 Intake Total 50 ml 50 ml 1200 ml 50 ml Balance 50 ml 50 ml 1200 ml 50 ml Intake Oral 1200 ml IV Total 50 ml 50 ml 50 ml # Voids 3 8 4 # Bowel Movements 0 Result Diagram: 02/05/18 1154 02/05/18 1137 Imaging Last Impressions Gall Bladder Ultrasound 02/06/18 0000 Signed Impressions: CONCLUSION: 1. Fatty infiltration of the liver with a area of decreased echogenicity ident ified within the left lobe. This may represent a true mass versus an area of fo ankita fat sparing. Further evaluation with contrast-enhanced CT or MRI is recomme nded to exclude a mass. 2. Cholelithiasis. Objective Remarks GENERAL: Well-developed obese female in no acute distress. CARDIOVASCULAR: Regular rate and rhythm without murmurs, gallops, or rubs. RESPIRATORY: Clear to auscultation. Breath sounds equal bilaterally. No wheezes , rales, or rhonchi. GASTROINTESTINAL: Abdomen soft, non-tender, nondistended. No hepato-splenomegaly , or palpable masses. No guarding. MUSCULOSKELETAL: Extremities without clubbing, cyanosis, or edema. No calf tenderness. Negative Homans sign bilaterally. Right knee with edema, warmth. Knee dressing dry and intact. NEUROLOGICAL: Awake and alert. Cranial nerves II through XII intact. Motor and sensory grossly within normal limits. Five out of 5 muscle strength in all muscle groups. Normal speech. A/P Assessment and Plan 67-year-old female with past medical history significant for hypertension, diabetes, hypothyroidism, and gout who has history of right knee replacement June 2017. Patient developed swelling of the right knee and underwent aspiration and placed on oral Levaquin. Cultures came back positive for MSSA, she was admitted to [facility] and treated with IV antibiotics. She underwent I&D of right knee and discharged with course of p.o. as well as IV antibiotics to complete. She presents to the hospital today with complaints of nausea and vomiting. Right knee septic arthritis -Aspiration done 01/25 positive for MSSA, underwent I&D -CBC reviewed, mild leukocytosis with left shift, afebrile. Right knee positive for swelling and warmth. -check LFT's. -consult ID to assist with antibiotic regimen.Will need 6 weeks of IV abx -Consult Dr. Wayne for further recommendations -Pain control with as needed [place] or Tylenol Nausea and vomiting Elevated bilirubin 1.6 , repeat bilirubin tomorrow Mild transaminitis monitor LFTs -Possibly secondary to rifampin -Anti-emetics as needed -Ultrasound abdomen reviewed. Patient with fatty liver however there is also a possible mass approximately 5 cm x 4 cm in the left upper lobe of the liver. Also cholelithiasis. -Plan for MRI with contrast of the abdomen Diabetes mellitus 2 -Hold metformin for the moment, Accu-Cheks with insulin sliding scale. -Diabetic diet Hypertension Dyslipidemia - Continue Dyazide, metoprolol, and Zocor Hypothyroidism -Continue home dose levothyroxine Gout -Continue home dose allopurinol Sore throat Cepacol annabel prn Discussed Condition With nurse, patient. Carolee Berry MD Feb 06, 2018 14:14
[2018-02-06 16:00] VITALS: BP 142/68; PULSE 79; RESP 22; TEMP 97.9; O2SAT 98
--- NOTE | 2018-02-06 16:28 | RADRPT ---
EXAM DATE: 02/06/2018 4:16 PM EDT AGE/SEX: 67 years / Female INDICATIONS: . Abnormal ulatrasound. CLINICAL DATA: This is the patient's initial encounter. Patient reports that signs and symptoms have been present for 3 days and indicates a pain score of 0/10. MEDICAL/SURGICAL HISTORY: Diabetes mellitus type II. Hypertension. Hypothyroidism. Hysterecto my. Total knee replacement, right. Tubal ligation. Aortic valve replacement. COMPARISON: Ultrasound of the abdomen and 02/06/2018. TECHNIQUE: Multiplanar, multisequence images of the abdomen were obtained prior to and following adm inistration of 20cc ml Omniscan (gadodiamide) contrast as a single exam dose with dynamic multiphase technique. FINDINGS: Liver: The liver is mildly enlarged. Diffuse fatty infiltration of the liver is noted. The questioned mass-like density within the left lobe is confirmed as an area of focal fatty sparing. No hepatic ma ss is noted. No biliary ductal dilatation is noted. Gallbladder: The gallbladder contains multiple gallstones. No wall thickening or pericholecystic flui d is noted. Spleen: Minimal splenomegaly is noted. Pancreas: The pancreas is unremarkable. Adrenals: The adrenal glands appear normal. Kidneys: There are 2 simple cysts within the left kidney which with the larger measuring 14 mm. There is no hydronephrosis on either side. Retroperitoneum: The aorta is unremarkable. There is no pathologic abdominal lymphadenopathy. Bony structures: Degenerative changes and scoliosis of the thoracolumbar spine are noted. CONCLUSION: 1. Enlarged liver with diffuse fatty infiltration and area of focal fatty sparing within the left lo be. No focal hepatic mass is noted. 2. Cholelithiasis. 3. 2 left renal cysts. 4. Minimal splenomegaly. 5. Degenerative changes and scoliosis of the thoracolumbar spine. Electronically signed by: Prasad Washington MD 02/06/2018 4:26 PM EDT
[2018-02-06 20:00] VITALS: BP 130/63; PULSE 67; RESP 18; TEMP 97.8; O2SAT 99
[2018-02-06] MEDS: PRAVASTATIN SOD 80 MG TAB PO SCH (20:57)
[2018-02-06] MEDS: DOCUSATE SODIUM 50 MG/SENNA 8.6 MG TAB PO SCH (20:57)
[2018-02-06] MEDS: ALLOPURINOL 300 MG TAB PO SCH (21:07)
[2018-02-07] VITALS: BP 133/61; PULSE 68; RESP 18; TEMP 97.6; O2SAT 96
[2018-02-07] MEDS: SODIUM CHLOR 0.9% 1000 ML INJ 1,000 ML IV SCH ×2 (02:50→11:00)
[2018-02-07] MEDS: ceFAZolin 2 GM PREMIX 50 ML IV SCH ×3 (02:50→17:58)
[2018-02-07] MEDS: LEVOTHYROXINE SODIUM 150 MCG TAB PO SCH (05:56)
[2018-02-07 06:44] LABS: BASOPHIL # 0.1 TH/MM3 (0-0.2); EOSINOPHIL # 0.2 TH/MM3 (0-0.4); EOSINOPHIL % 2.1 % (0.0-4.0); HEMATOCRIT 33.1 % (35.0-46.0); HEMOGLOBIN 10.9 GM/DL (11.6-15.3); LYMPHOCYTE # 1.6 TH/MM3 (1.0-4.8); MEAN CELL VOLUME 83.8 FL (80.0-100.0); MEAN CORPUSCULAR HEMOGLOBIN 27.8 PG (27.0-34.0); MEAN CORPUSCULAR HGB CONC 33.1 % (32.0-36.0); MEAN PLATELET VOLUME 6.8 FL (7.0-11.0); MONO % 7.9 % (0.0-8.0); MONOCYTE # 0.9 TH/MM3 (0-0.9); PLATELET COUNT 317 TH/MM3 (150-450); RED BLOOD COUNT 3.94 MIL/MM3 (4.00-5.30); RED CELL DISTRIBUTION WIDTH 14.8 % (11.6-17.2); WHITE BLOOD COUNT 10.8 TH/MM3 (4.0-11.0)
[2018-02-07 07:13] LABS: BICARBONATE 28.1 MEQ/L (21.0-32.0); CALCIUM 8.9 MG/DL (8.5-10.1); CREATININE 0.94 MG/DL (0.50-1.00)
[2018-02-07 07:16] LABS: TOTAL BILIRUBIN ADULT 0.7 MG/DL (0.2-1.0)
--- NOTE | 2018-02-07 07:23 | PD.ORT.PN ---
Subjective Subjective Remarks Doing well. No complaints. Patient notes pain is decreasing daily. Already has PICC line from outside institution. Objective Vitals Vital Signs Date Time Temp Pulse Resp B/P (MAP) Pulse Ox O2 Delivery O2 Flow Rate FiO2 02/07/18 00:00 97.6 68 18 133/61 (85) 96 02/06/18 20:00 97.8 67 18 130/63 (85) 99 02/06/18 16:00 97.9 79 22 142/68 (92) 98 02/06/18 12:00 98.1 78 20 127/71 (89) 94 02/06/18 08:00 97.6 67 20 150/78 (102) 96 I/O 02/06/18 02/06/18 02/06/18 02/07/18 02/07/18 02/07/18 07:00 15:00 23:00 07:00 15:00 23:00 Intake Total 50 ml 480 ml 850 ml Balance 50 ml 480 ml 850 ml Intake Oral 480 ml 800 ml IV Total 50 ml 50 ml # Voids 4 2 2 # Bowel Movements 0 0 Result Diagram: 02/07/18 0600 02/07/18 0600 Objective Remarks Laying in bed NAD VSS RLE Knee dressing intact anterior, no new drainage, erythema present but less Mild swelling, mild effusion +motor at distal, +sens, Neg homans Assessment & Plan Assessment and Plan Status post right total knee replacement arthroplasty, 7 months postop. Infected right total knee replacement arthroplasty, MSSA. Status post debridement of right total knee replacement 8 days ago ([facility]) PLAN: Continue IV antibiotics. Medical evaluation and treatment. Her erythema seems to be improving If constitutional symptoms of infection increase, consider a second debridement and placement of antibiotic impregnated calcium sulfate beads. We will follow while she is in the hospital and continue to follow her for her knee condition as an outpatient when she is discharged Anticipate 6 weeks of IV antibiotics. Patient advised that she is at risk of coming to two-stage revision if infection persists. Orthopedically stable for discharge. She will call for follow-up appointment in 1 week Jacob Wayne MD Feb 07, 2018 07:23
[2018-02-07 08:00] VITALS: BP 133/72; PULSE 65; RESP 17; TEMP 97.8; O2SAT 95
[2018-02-07] MEDS: INSULIN ASPART SUPPLEMENTAL SCALE SQ SCH ×4 (08:00→21:00)
[2018-02-07] MEDS: TRIAMTERENE/HCTZ 37.5 MG/25 MG CAP PO SCH (09:09)
[2018-02-07] MEDS: DOCUSATE SODIUM 50 MG/SENNA 8.6 MG TAB PO SCH ×2 (09:09→20:43)
[2018-02-07] MEDS: METOPROLOL TARTRATE 25 MG TAB PO SCH ×2 (09:09→20:42)
[2018-02-07] MEDS: RIFAMPIN 150 MG CAP PO SCH ×2 (09:09→20:42)
--- NOTE | 2018-02-07 09:11 | HHI.PR ---
Subjective Remarks Feels improving a little bit. Able to ambulate in the hallways. Has pain in her right knee with ambulation however pain is fairly controlled by medications. Sore throat improved significantly and is able to eat better. No nausea vomiting. No abdominal pain. Labs improved as well. No fever or chills. Objective Vitals Vital Signs Date Time Temp Pulse Resp B/P (MAP) Pulse Ox O2 Delivery O2 Flow Rate FiO2 02/07/18 08:00 97.8 65 17 133/72 (92) 95 02/07/18 00:00 97.6 68 18 133/61 (85) 96 02/06/18 20:00 97.8 67 18 130/63 (85) 99 02/06/18 16:00 97.9 79 22 142/68 (92) 98 02/06/18 12:00 98.1 78 20 127/71 (89) 94 I/O 02/06/18 02/06/18 02/06/18 02/07/18 02/07/18 02/07/18 06:59 14:59 22:59 06:59 14:59 22:59 Intake Total 50 ml 480 ml 850 ml Balance 50 ml 480 ml 850 ml Intake Oral 480 ml 800 ml IV Total 50 ml 50 ml # Voids 4 2 2 # Bowel Movements 0 0 Result Diagram: 02/07/18 0600 02/07/18 0600 Imaging Last Impressions Gall Bladder Ultrasound 02/06/18 0000 Signed Impressions: CONCLUSION: 1. Fatty infiltration of the liver with a area of decreased echogenicity ident ified within the left lobe. This may represent a true mass versus an area of fo ankita fat sparing. Further evaluation with contrast-enhanced CT or MRI is recomme nded to exclude a mass. 2. Cholelithiasis. Abdomen MRI 02/06/18 0000 Signed Impressions: CONCLUSION: 1. Enlarged liver with diffuse fatty infiltration and area of focal fatty spar ing within the left lobe. No focal hepatic mass is noted. 2. Cholelithiasis. 3. 2 left renal cysts. 4. Minimal splenomegaly. 5. Degenerative changes and scoliosis of the thoracolumbar spine. Objective Remarks GENERAL: Well-developed obese female in no acute distress. CARDIOVASCULAR: Regular rate and rhythm without murmurs, gallops, or rubs. RESPIRATORY: Clear to auscultation. Breath sounds equal bilaterally. No wheezes , rales, or rhonchi. GASTROINTESTINAL: Abdomen soft, non-tender, nondistended. No hepato-splenomegaly , or palpable masses. No guarding. MUSCULOSKELETAL: Extremities without clubbing, cyanosis, or edema. No calf tenderness. Negative Homans sign bilaterally. Right knee with edema, warmth. Knee dressing dry and intact. NEUROLOGICAL: Awake and alert. Cranial nerves II through XII intact. Motor and sensory grossly within normal limits. Five out of 5 muscle strength in all muscle groups. Normal speech. A/P Assessment and Plan 67-year-old female with past medical history significant for hypertension, diabetes, hypothyroidism, and gout who has history of right knee replacement June 2017. Patient developed swelling of the right knee and underwent aspiration and placed on oral Levaquin. Cultures came back positive for MSSA, she was admitted to [facility] and treated with IV antibiotics. She underwent I&D of right knee and discharged with course of p.o. as well as IV antibiotics to complete. She presents to the hospital today with complaints of nausea and vomiting. Right knee septic arthritis -Aspiration done 01/25 positive for MSSA, underwent I&D -CBC reviewed, mild leukocytosis with left shift, afebrile. Right knee positive for swelling and warmth. -LFT's back to normal -Bilirubin repeat is back to normal -consult ID to assist with antibiotic regimen.Will need 6 weeks of IV abx -Consult Dr. Wayne for further recommendations -Pain control with as needed [place] or Tylenol Nausea and vomiting Elevated bilirubin 1.6 , repeat bilirubin tomorrow Mild transaminitis monitor LFTs -Possibly secondary to rifampin -Anti-emetics as needed -Ultrasound abdomen reviewed. Patient with fatty liver however there is also a possible mass approximately 5 cm x 4 cm in the left upper lobe of the liver. Also cholelithiasis. -MRI with contrast of the abdomen reviewed no liver mass as seen on US Diabetes mellitus 2 -Hold metformin for the moment, Accu-Cheks with insulin sliding scale. -Diabetic diet Hypertension Dyslipidemia - Continue Dyazide, metoprolol, and Zocor Hypothyroidism -Continue home dose levothyroxine Gout -Continue home dose allopurinol Sore throat Cepacol annabel prn Discussed Condition With nurse, patient. Carolee Berry MD Feb 07, 2018 09:10
[2018-02-07] MEDS: PILL SPLITTER OTHER PRN (09:17)
[2018-02-07 12:00] VITALS: BP 137/64; PULSE 63; RESP 16; TEMP 97.9; O2SAT 96
[2018-02-07 16:00] VITALS: BP 134/65; PULSE 63; RESP 16; TEMP 98; O2SAT 96
[2018-02-07 20:00] VITALS: BP 130/63; PULSE 69; RESP 16; TEMP 98.5; O2SAT 97
[2018-02-07] MEDS: ACETAMINOPHEN/HYDROcodone 325 MG/5 MG TAB PO PRN (20:42)
[2018-02-07] MEDS: PRAVASTATIN SOD 80 MG TAB PO SCH (20:42)
[2018-02-07] MEDS: ALLOPURINOL 300 MG TAB PO SCH (20:43)
[2018-02-08] VITALS: BP 136/66; PULSE 70; RESP 16; TEMP 97.9; O2SAT 97
[2018-02-08] MEDS: SODIUM CHLOR 0.9% 1000 ML INJ 1,000 ML IV SCH ×2 (01:10→15:00)
[2018-02-08] MEDS: ceFAZolin 2 GM PREMIX 50 ML IV SCH ×3 (01:10→16:49)
[2018-02-08] MEDS: LEVOTHYROXINE SODIUM 150 MCG TAB PO SCH (05:49)
[2018-02-08 08:00] VITALS: BP 107/56; PULSE 65; RESP 19; TEMP 97.9; O2SAT 95
[2018-02-08] MEDS: INSULIN ASPART SUPPLEMENTAL SCALE SQ SCH ×3 (08:00→16:49)
--- NOTE | 2018-02-08 08:52 | HHI.PR ---
Subjective Remarks Feels better No n/v/d/c. No pain, she is ambulating without any problems. No fever or chills Objective Vitals Vital Signs Date Time Temp Pulse Resp B/P (MAP) Pulse Ox O2 Delivery O2 Flow Rate FiO2 02/08/18 00:00 97.9 70 16 136/66 (89) 97 02/07/18 22:06 18 02/07/18 20:00 98.5 69 16 130/63 (85) 97 02/07/18 16:00 98.0 63 16 134/65 (88) 96 02/07/18 12:00 97.9 63 16 137/64 (88) 96 I/O 02/07/18 02/07/18 02/07/18 02/08/18 02/08/18 02/08/18 07:00 15:00 23:00 07:00 15:00 23:00 Intake Total 1050 ml 1450 ml Balance 1050 ml 1450 ml Intake Oral 1400 ml IV Total 1050 ml 50 ml # Voids 7 2 # Bowel Movements 2 Result Diagram: 02/07/18 0600 02/07/18 06 Imaging Last Impressions Gall Bladder Ultrasound 02/06/18 0000 Signed Impressions: CONCLUSION: 1. Fatty infiltration of the liver with a area of decreased echogenicity ident ified within the left lobe. This may represent a true mass versus an area of fo ankita fat sparing. Further evaluation with contrast-enhanced CT or MRI is recomme nded to exclude a mass. 2. Cholelithiasis. Abdomen MRI 02/06/18 Signed Impressions: CONCLUSION: 1. Enlarged liver with diffuse fatty infiltration and area of focal fatty spar ing within the left lobe. No focal hepatic mass is noted. 2. Cholelithiasis. 3. 2 left renal cysts. 4. Minimal splenomegaly. 5. Degenerative changes and scoliosis of the thoracolumbar spine. Objective Remarks GENERAL: Well-developed obese female in no acute distress. CARDIOVASCULAR: Regular rate and rhythm without murmurs, gallops, or rubs. RESPIRATORY: Clear to auscultation. Breath sounds equal bilaterally. No wheezes , rales, or rhonchi. GASTROINTESTINAL: Abdomen soft, non-tender, nondistended. No hepato-splenomegaly , or palpable masses. No guarding. MUSCULOSKELETAL: Extremities without clubbing, cyanosis, or edema. No calf tenderness. Negative Homans sign bilaterally. Right knee with edema, warmth. Knee dressing dry and intact. NEUROLOGICAL: Awake and alert. Cranial nerves II through XII intact. Motor and sensory grossly within normal limits. Five out of 5 muscle strength in all muscle groups. Normal speech. A/P Assessment and Plan 67-year-old female with past medical history significant for hypertension, diabetes, hypothyroidism, and gout who has history of right knee replacement June 2017. Patient developed swelling of the right knee and underwent aspiration and placed on oral Levaquin. Cultures came back positive for MSSA, she was admitted to [facility] and treated with IV antibiotics. She underwent I&D of right knee and discharged with course of p.o. as well as IV antibiotics to complete. She presents to the hospital today with complaints of nausea and vomiting. Right knee septic arthritis -Aspiration done 01/25 positive for MSSA, underwent I&D -CBC reviewed, mild leukocytosis with left shift, afebrile. Right knee positive for swelling and warmth. -LFT's back to normal -Bilirubin repeat is back to normal -consult ID to assist with antibiotic regimen.Will need 6 weeks of IV abx -Consult Dr. Wayne for further recommendations -Pain control with as needed [place] or Tylenol Nausea and vomiting Elevated bilirubin 1.6 , repeat bilirubin tomorrow Mild transaminitis monitor LFTs -Possibly secondary to rifampin -Anti-emetics as needed -Ultrasound abdomen reviewed. Patient with fatty liver however there is also a possible mass approximately 5 cm x 4 cm in the left upper lobe of the liver. Also cholelithiasis. -MRI with contrast of the abdomen reviewed no liver mass as seen on US Diabetes mellitus 2 -Hold metformin for the moment, Accu-Cheks with insulin sliding scale. -Diabetic diet Hypertension Dyslipidemia - Continue Dyazide, metoprolol, and Zocor Hypothyroidism -Continue home dose levothyroxine Gout -Continue home dose allopurinol Sore throat Cepacol annabel prn Discussed Condition With nurse, patient, ID specialist Dr Jeffers Patient improved significantly. Ambulating without any problems. DC on IV antibiotic to have at infusion center administration of abx. Infusion therapy order done by Dr Jeffers ID specialist: Cefazolin 2 grams IV q 8 hours. Start Treatment: Feb 08, 2018. Stop Treatment: Mar 14, 2018. Follow up as OP with PCP and consultants Cosma,Carolee MD Feb 08, 2018 08:52
[2018-02-08] MEDS ORDERED: HYDR-3516 PO (08:54)
--- NOTE | 2018-02-08 08:55 | HHI.DS ---
Discharge Summary Admission Date February 04, 2018 at 15:16 Discharge Date: Feb 08, 2018 Admitting Diagnosis Nausea vomitin, right total knee infection, leukocytosis, diabetes me (1) Septic joint of right knee joint ICD Code: M00.9 - Pyogenic arthritis, unspecified (2) Infection of prosthetic right knee joint ICD Code: T84.53XA - Infection and inflammatory reaction due to internal right knee prosthesis, initial encounter (3) Diabetes mellitus ICD Code: E11.9 - Type 2 diabetes mellitus without complications Status: Acute (4) Morbid obesity with BMI of 40.0-44.9, adult ICD Code: E66.01 - Morbid (severe) obesity due to excess calories; Z68.41 - Body mass index (BMI) 40.0-44.9, adult Status: Acute Procedures Right knee Aspiration done 01/25 positive for MSSA, underwent I&D Brief History - From Admission 67-year-old female with past medical history significant for HTN, DM, aortic valve replacement, hypothyroidism, and gout who underwent right knee replacement in June 2017 by . She presents to the emergency department today with complaints of nausea and vomiting. She was discharged from [facility] yesterday and returned to [place]. She was instructed that if she were to develop symptoms of systemic infection to return to the emergency department. She reports that she was discharged from the hospital with IV antibiotics which she has not yet started along with p.o. antibiotics, Rifampin. Nausea began yesterday prior to her leaving hospital and she has had 3 episodes of emesis since being discharged, has not tried to have anything else to eat after this. Patient was treated in the [facility] for right knee swelling. She reports that she had aspiration of the right knee and removal of 90 cc of cloudy fluid which patient was told looked infectious on 01/25. She was prescribed at that time oral Levaquin, however cultures resulted back positive for staph aureus. Patient brings with her medical records which were reviewed. She was admitted to [facility] on 01/29. Her Levaquin was discontinued and she was placed on Ancef. Patient later underwent IND on 01/29 with poly-exchange, cultures were negative she was switched over to nafcillin and oral rifampin. Discharge instructions were for patient to continue IV nafcillin plus rifampin for 6 weeks followed by 6 months of oral Keflex plus rifampin. Blood cultures during her stay negative, tissue cultures negative, right knee fluid cultures negative. At the time of my examination is at bedside and patient is resting comfortably in stretcher. She denies any current nausea or vomiting, fevers or chills, diarrhea, headaches, dizziness, shortness of breath or cough. CBC/BMP: 02/07/18 0600 02/07/18 0600 Significant Findings Laboratory Tests Test 02/05/18 11:37 02/05/18 11:54 02/05/18 21:40 02/07/18 06:00 Erythrocyte Sedimentation Rate 111 mm/hr (0-30) Creatinine 1.10 MG/DL (0.50-1.00) Random Glucose 185 MG/DL (74-106) 117 MG/DL (74-106) Albumin 3.0 GM/DL (3.4-5.0) Total Bilirubin 1.6 MG/DL (0.2-1.0) Estimat Glomerular Filtration Rate 50 ML/MIN (>89) 59 ML/MIN (>89) C-Reactive Protein 4.70 MG/DL (0.00-0.30) White Blood Count 11.3 TH/MM3 (4.0-11.0) Hemoglobin 11.5 GM/DL (11.6-15.3) 10.9 GM/DL (11.6-15.3) Hematocrit 34.4 % (35.0-46.0) 33.1 % (35.0-46.0) Neutrophils (%) (Auto) 79.4 % (16.0-70.0) 74.0 % (16.0-70.0) Neutrophils # (Auto) 8.9 TH/MM3 (1.8-7.7) 8.0 TH/MM3 (1.8-7.7) Red Blood Count 3.94 MIL/MM3 (4.00-5.30) Mean Platelet Volume 6.8 FL (7.0-11.0) Imaging Last Impressions Gall Bladder Ultrasound 02/06/18 0000 Signed Impressions: CONCLUSION: 1. Fatty infiltration of the liver with a area of decreased echogenicity ident ified within the left lobe. This may represent a true mass versus an area of fo ankita fat sparing. Further evaluation with contrast-enhanced CT or MRI is recomme nded to exclude a mass. 2. Cholelithiasis. Abdomen MRI 02/06/18 0000 Signed Impressions: CONCLUSION: 1. Enlarged liver with diffuse fatty infiltration and area of focal fatty spar ing within the left lobe. No focal hepatic mass is noted. 2. Cholelithiasis. 3. 2 left renal cysts. 4. Minimal splenomegaly. 5. Degenerative changes and scoliosis of the thoracolumbar spine. PE at Discharge GENERAL: Well-developed obese female in no acute distress. CARDIOVASCULAR: Regular rate and rhythm without murmurs, gallops, or rubs. RESPIRATORY: Clear to auscultation. Breath sounds equal bilaterally. No wheezes , rales, or rhonchi. GASTROINTESTINAL: Abdomen soft, non-tender, nondistended. No hepato-splenomegaly , or palpable masses. No guarding. MUSCULOSKELETAL: Extremities without clubbing, cyanosis, or edema. No calf tenderness. Negative Homans sign bilaterally. Right knee with edema, warmth. Knee dressing dry and intact. NEUROLOGICAL: Awake and alert. Cranial nerves II through XII intact. Motor and sensory grossly within normal limits. Five out of 5 muscle strength in all muscle groups. Normal speech. Hospital Course 67-year-old female with past medical history significant for hypertension, diabetes, hypothyroidism, and gout who has history of right knee replacement June 2017. Patient developed swelling of the right knee and underwent aspiration and placed on oral Levaquin. Cultures came back positive for MSSA, she was admitted to [facility] and treated with IV antibiotics. She underwent I&D of right knee and discharged with course of p.o. as well as IV antibiotics to complete. She presents to the hospital today with complaints of nausea and vomiting. Right knee septic arthritis -Aspiration done 01/25 positive for MSSA, underwent I&D -CBC reviewed, mild leukocytosis with left shift, afebrile. Right knee positive for swelling and warmth. -LFT's back to normal -Bilirubin repeat is back to normal -consult ID to assist with antibiotic regimen.Will need 6 weeks of IV abx -Consult Dr. Wayne for further recommendations -Pain control with as needed [place] or Tylenol Nausea and vomiting Elevated bilirubin 1.6 , repeat bilirubin tomorrow Mild transaminitis monitor LFTs -Possibly secondary to rifampin -Anti-emetics as needed -Ultrasound abdomen reviewed. Patient with fatty liver however there is also a possible mass approximately 5 cm x 4 cm in the left upper lobe of the liver. Also cholelithiasis. -MRI with contrast of the abdomen reviewed no liver mass as seen on US Diabetes mellitus 2 -Hold metformin for the moment, Accu-Cheks with insulin sliding scale. -Diabetic diet Hypertension Dyslipidemia - Continue Dyazide, metoprolol, and Zocor Hypothyroidism -Continue home dose levothyroxine Gout -Continue home dose allopurinol Sore throat Cepacol annabel prn Discussed Condition With nurse, patient, ID specialist Dr Jeffers Patient improved significantly. Ambulating without any problems. DC on IV antibiotic to have at infusion center administration of abx. Infusion therapy order done by Dr Jeffers ID specialist: Cefazolin 2 grams IV q 8 hours. Start Treatment: Feb 08, 2018. Stop Treatment: Mar 14, 2018. Follow up as OP with PCP and consultants Pt Condition on Discharge: Stable Discharge Disposition: Disch w/ Home Health Serv Discharge Time: > 30 minutes Discharge Instructions DIET: Follow Instructions for: Heart Healthy Diet, Diabetic Diet Activities you can perform: Regular-No Restrictions Follow up Referrals: Infectious Disease - 1 Week with Charu Dietz MD Orthopedics - 1 Week with Jacob Wayne MD PCP Follow-up - 2-3 Days New Medications: Cefazolin Inj (Cefazolin Inj) 2 Gm/50 Ml Bagp 2 GM IV Q8H for Infection for 35 Days, BAG 0 Refills Epinephrine Inj (Epinephrine Inj) 1 Mg/Ml (1 Ml) Inj 0.3 MG IV PUSH ONCE PRN for ALLERGIC REACTION, #1 VIAL Epinephrine Inj (Epinephrine Inj) 1 Mg/Ml (1 Ml) Inj 0.3 MG SQ ONCE PRN for ALLERGIC REACTION, #1 VIAL Give with any signs of respiratory distress. Hydrocortisone Inj (Solu-Cortef Inj) 250 Mg/2 Ml Inj 250 MG IV PUSH ONCE PRN for ALLERGIC REACTION, #1 VIAL 0 Refills Give over 30-60 seconds. Hydrocodone/Acetaminophen (Hydrocodone-Acetamin 5-325 mg) 5 Mg-325 Mg Tablet 1 TAB PO Q4H PRN for pain , #30 TAB Continued Medications: Allopurinol (Allopurinol) 300 Mg Tab 300 MG PO HS for Gout, #30 TAB 0 Refills Coenzyme Q10 (Ubidecarenone) (Coq-10 Tr) 100 Mg Cap 100 MG PO DAILY Krill Oil (Krill Oil) 500 Mg Capsule 500 MG PO DAILY for Nutritional Supplement Levothyroxine (Synthroid) 150 Mcg Tab 150 MCG PO DAILY for Thyroid, #30 TAB 0 Refills Metformin (Glucophage) 500 Mg Tab 500 MG PO BIDPC for Blood Sugar Management, #60 TAB 0 Refills With meals Metoprolol Tartrate (Metoprolol Tartrate) 25 Mg Tab 12.5 MG PO BID, #30 TAB 0 Refills Rifampin (Rifadin) 300 Mg Cap 300 MG PO BID for Infection, CAP 0 Refills Simvastatin (Zocor) 40 Mg Tab 40 MG PO HS for Cholesterol Management, #30 TAB 0 Refills Triamterene-Hydrochlorothiazide (Dyazide) 37.5-25 Mg Cap 1 CAP PO DAILY, #30 CAP 0 Refills Carolee Berry MD Feb 08, 2018 08:55
[2018-02-08] MEDS: METOPROLOL TARTRATE 25 MG TAB PO SCH (09:22)
[2018-02-08] MEDS: TRIAMTERENE/HCTZ 37.5 MG/25 MG CAP PO SCH (09:22)
[2018-02-08] MEDS: RIFAMPIN 150 MG CAP PO SCH (09:22)
[2018-02-08] MEDS: DOCUSATE SODIUM 50 MG/SENNA 8.6 MG TAB PO SCH (09:22)
--- NOTE | 2018-02-08 11:32 | HHI.FF ---
Face to Face Verification Diagnosis: (1) Nausea & vomiting (2) Septic joint of right knee joint (3) Infection of prosthetic right knee joint (4) Diabetes mellitus (5) Aortic stenosis due to bicuspid aortic valve (6) Pneumonia (7) Pleural effusion (8) COPD (chronic obstructive pulmonary disease) (9) Wheezing (10) Diastolic CHF due to valvular disease (11) Hyperlipemia (12) Hypothyroidism (13) Osteoarthritis of right knee (14) History of aortic valve replacement (15) S/P AVR (aortic valve replacement) Physical Therapy Order: Evaluate and Treat Home Health Nursing Order: Medical education Signs/symptoms of disease process Medication education-adverse effect Nursing assessment with vital signs IV medication administration I have seen patient Mirna Obiren on 02/08/18. My clinical findings support the need for the requested home health care services because: Ltd mobility - disease progression Patient has SOB I certify that my clinical findings support that this patient is homebound because: Post-op weakness Carolee Berry MD Feb 08, 2018 11:32
[2018-02-08 12:00] VITALS: BP 155/75; PULSE 66; RESP 17; TEMP 97.9; O2SAT 94
--- NOTE | 2018-02-08 13:50 | HHI.IDPN ---
Subjective Subjective Remarks pt seen earlier today no c/o LFTs noted resolved nausea no fever MRI of the abd showed fatty liver,but no hepatic mass Antibiotics cefazolin rifampin Allergies: Coded Allergies: No Known Allergies (Verified Allergy, Unknown, 02/04/18) Objective . Vital Signs Date Time Temp Pulse Resp B/P (MAP) Pulse Ox O2 Delivery O2 Flow Rate FiO2 02/08/18 12:00 97.9 66 17 155/75 (101) 94 02/08/18 08:00 97.9 65 19 107/56 (73) 95 02/08/18 00:00 97.9 70 16 136/66 (89) 97 02/07/18 22:06 18 02/07/18 20:00 98.5 69 16 130/63 (85) 97 02/07/18 16:00 98.0 63 16 134/65 (88) 96 . Laboratory Tests Test 02/07/18 06:00 White Blood Count 10.8 TH/MM3 Red Blood Count 3.94 MIL/MM3 Hemoglobin 10.9 GM/DL Hematocrit 33.1 % Mean Corpuscular Volume 83.8 FL Mean Corpuscular Hemoglobin 27.8 PG Mean Corpuscular Hemoglobin Concent 33.1 % Red Cell Distribution Width 14.8 % Platelet Count 317 TH/MM3 Mean Platelet Volume 6.8 FL Neutrophils (%) (Auto) 74.0 % Lymphocytes (%) (Auto) 15.0 % Monocytes (%) (Auto) 7.9 % Eosinophils (%) (Auto) 2.1 % Basophils (%) (Auto) 1.0 % Neutrophils # (Auto) 8.0 TH/MM3 Lymphocytes # (Auto) 1.6 TH/MM3 Monocytes # (Auto) 0.9 TH/MM3 Eosinophils # (Auto) 0.2 TH/MM3 Basophils # (Auto) 0.1 TH/MM3 CBC Comment DIFF FINAL Differential Comment Laboratory Tests Test 02/07/18 06:00 Blood Urea Nitrogen 15 MG/DL Creatinine 0.94 MG/DL Random Glucose 117 MG/DL Calcium Level 8.9 MG/DL Total Bilirubin 0.7 MG/DL Sodium Level 140 MEQ/L Potassium Level 3.9 MEQ/L Chloride Level 103 MEQ/L Carbon Dioxide Level 28.1 MEQ/L Anion Gap 9 MEQ/L Estimat Glomerular Filtration Rate 59 ML/MIN Physical Exam CONSTITUTIONAL/GENERAL: This is a morbidly obese patient, in no apparent distress. TUBES/LINES/DRAINS: PICC in place LUE - site [place] SKIN: No jaundice, rashes, or lesions. MUSCULOSKELETAL: Extremities without clubbing, cyanosis, or edema. No joint tenderness or effusion noted. No calf tenderness. No mottling or clubbing. R knee with dressing in place, ambulates in hallway with walker NEUROLOGICAL: Awake and alert. Clear speech Moves all extremities. PSYCHIATRIC:calm and coperative Assessment & Plan Remarks Prosthetic knee infection, Right, MSSA - quite high ESR Presenting with nausea, vomiting - r/o side effect vs sepsis DM cont cefazolin cont Rifampin fu LFTs fu with Dr Jerzy Singh [place] to dc dw case mngr Kenna Delgadillo MD Feb 08, 2018 13:50
--- NOTE | 2018-02-08 13:57 | HHI.FF ---
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 [] May leave port accessed during therapy. [] May leave peripheral site accessed for duration of therapy. [x] If patient has SOB or respiratory distress, check oxygen saturation. If less than 90% or clinical signs of respiratory distress, administer oxygen at 2 L/min. via nasal cannula and notify physician. [x] Anaphylaxis/Reaction orders: * Stop infusion. * Keep IV line open with saline flush. * Notify physician. * Monitor vital signs every 15 minutes until symptoms resolve. * Check Oxygen saturation; Oxygen at 2 L/min. via nasal cannula if less than 90% or clinical signs of respiratory distress. * Administer diphenhydramine (Benadryl) 25 mg IV STAT, (unless patient has received as pre-med). May repeat once, if necessary. * Solu-Cortef 250 mg IVP over 30-60 seconds, use 100 mg vials for each dissolution. * Epinephrine (1mg/1 ml) 0.3 mg subcutaneously or IVP now with any signs of respiratory distress. * Check with physician for new additional pre-med orders if patient is re- challenged or re-treated. [x] May remove PICC line when treatment complete, after confirming with Physician. [x] If the patient is admitted to the hospital, the ED, or transferred via [facility] , complete transfer form including medication reconciliation order sheet. Laboratory Tests Weekly Labs: CBC w/diff, CMP, CRP, SED Rate Kenna Delgadillo MD Feb 08, 2018 13:57
[2018-02-08] MEDS ORDERED: EPIN1INJ21 SQ (13:59)
[2018-02-08] MEDS ORDERED: EPIN1INJ21 IV PUSH (13:59)
[2018-02-08] MEDS ORDERED: CEFA2SOL IV (13:59)
[2018-02-08] MEDS ORDERED: SOLU250I IV PUSH (13:59)
[2018-02-08 16:00] VITALS: BP 133/61; PULSE 71; RESP 19; TEMP 98.3; O2SAT 96
== END 2018-02-08 18:16 | disposition home or self-care (01) | DRG 560 ==
LOC: NEPC 11:15 → NEDA 15:16 → N07B 17:27
PROVIDERS: ADMIT Hospitalist; ATTEND Hospitalist
DX: T84.53XA Infection and inflammatory reaction due to internal right knee prosthesis, initial encounter (principal); Z68.41 Body mass index [BMI] 40.0-44.9, adult; K76.0 Fatty (change of) liver, not elsewhere classified; B95.61 Methicillin susceptible Staphylococcus aureus infection as the cause of diseases classified elsewhere; I10 Essential (primary) hypertension; E11.9 Type 2 diabetes mellitus without complications; Z79.84 Long term (current) use of oral hypoglycemic drugs; E03.9 Hypothyroidism, unspecified; E66.01 Morbid (severe) obesity due to excess calories; Z95.2 Presence of prosthetic heart valve; M10.9 Gout, unspecified; E78.5 Hyperlipidemia, unspecified; J02.9 Acute pharyngitis, unspecified; K80.20 Calculus of gallbladder without cholecystitis without obstruction; Y83.1 Surgical operation with implant of artificial internal device as the cause of abnormal reaction of the patient, or of later complication, without mention of misadventure at the time of the procedure
CPT/HCPCS: 74183; 76705; 80048; 80053; 80076; 81001; 82247; 82948; 85025; 85652; 86140; 87040; 87205; 96374; A9579; J0690; J0780; J1815; J7030

== ENCOUNTER 2018-02-23 21:22 | Emergency (ER) | payer MEDICARE ==
[~2018-02-23 21:22] MED LIST changes: +CEFA1SOL IV; -CPMMACHINE; +EPIN1INJ21 IV PUSH; +EPIN1INJ21 SQ; +HYDR-3516 PO; -KRIL1CAP9 PO; +KRIL500C2 PO; -OXYC1TAB63 PO; +RIFA300C PO; +SOLU250I IV PUSH; -XARE10TA PO
== END 2018-02-23 21:28 | disposition left against medical advice (07) ==
LOC: NED 21:22
DX: T85.9XXA Unspecified complication of internal prosthetic device, implant and graft, initial encounter (principal); Z53.21 Procedure and treatment not carried out due to patient leaving prior to being seen by health care provider
CPT/HCPCS: 99281